=== PATIENT | male | born 1930 | race Caucasian/White ===

== ENCOUNTER 2017-02-11 04:29 | Inpatient (IN) | payer OTHER ==
[~2017-02-11] VITALS: Ht 170.2 cm; Wt 155.0 kg
[~2017-02-11 04:29] MED LIST: ALBU8.5H5 INH; ALPR0.25 PO; BUDE10.22 INH; CARV-39 PO; DOXY100C15 PO; DOXY100T PO; FAMO-79 PO; FURO-92 PO; HYDR-3240 PO; HYDR12.58 PO; LISI-167 PO; LOVA40TA2 PO; METF500T4 PO; POLY255P PO; PRED20TA PO; RIVA20TA PO
[2017-02-11] MEDS ORDERED: SODIUM CHLORIDE 0.9% 1,000 ML IV ONE (05:03)
[2017-02-11] MEDS ORDERED: HYDROmorphone 1 MG/ML, 1ML ONE (05:25)
[2017-02-11] MEDS ORDERED: HYDROmorphone 1 MG/ML, 1ML IVPush ONE (05:30)
[2017-02-11] MEDS ORDERED: SODIUM CHLORIDE FLUSH 10ML SYR IVF ONE (05:30)
[2017-02-11 05:44] LABS: HEMOGLOBIN 11.3 g/dL (13.7-18.0); WHITE BLOOD COUNT 9.3 x10^3/uL (3.4-10)
[2017-02-11 05:56] LABS: BLOOD UREA NITROGEN 94 mg/dL (7-18)
[2017-02-11 06:02] LABS: ASPARTATE AMINO TRANSFERASE 10 U/L (15-37)
[2017-02-11 06:51] LABS: IS PT STATUS REG ER OR PRE ER? YES
[2017-02-11] MEDS ORDERED: ONDANSETRON ODT 4 MG PO PRN (09:30)
[2017-02-11] MEDS ORDERED: LABETALOL 5MG/ML, 20ML IVPush PRN (09:30)
[2017-02-11] MEDS ORDERED: ONDANSETRON 2MG/ML, 2ML IVPush PRN (09:30)
[2017-02-11] MEDS ORDERED: POTA10TA31 PO (09:55)
[2017-02-11] MEDS ORDERED: HYDR12.58 PO (09:55)
[2017-02-11] MEDS ORDERED: BUDE10.2 INH (09:55)
[2017-02-11] MEDS ORDERED: GLIP5TAB10 PO (09:55)
[2017-02-11] MEDS ORDERED: OXYC-302 PO (09:55)
[2017-02-11] MEDS ORDERED: ALBUTEROL/IPRATROPIUM 2.5MG/0.5MG, 3 ML ONE (09:57)
[2017-02-11] MEDS ORDERED: ALBUTEROL/IPRATROPIUM 2.5MG/0.5MG, 3 ML NPPB PRN (10:00)
[2017-02-11 10:44] VITALS: BP 93/58
[2017-02-11] MEDS: SODIUM CHLORIDE 0.9% 1,000 ML IV SCH (12:18)
[2017-02-11 14:20] LABS: BLOOD UREA NITROGEN 85 mg/dL (7-18)
[2017-02-11 14:46] VITALS: BP 95/55
[2017-02-11] MEDS ORDERED: ALBUTEROL HFA 90 MCG/SPRAY HOMEINH PRN (17:00)
[2017-02-11] MEDS ORDERED: SODIUM POLYSTYRENE SULFONATE ORAL SUSP PO ONE (17:00)
[2017-02-11 18:06] LABS: DAU SCREEN DISCLAIMER
[2017-02-11 18:33] VITALS: BP 115/71
[2017-02-11] MEDS: INSULIN ASPART 100 UNITS/ML, PEN SQ-INSULIN SCH (21:00)
[2017-02-11] MEDS: LOVASTATIN 40 MG TABLET PO SCH (21:00)
[2017-02-11] MEDS: HEPARIN 5,000 UNITS/ML, 1ML SQ SCH (22:20)
[2017-02-11] MEDS: CARVEDILOL 25 MG TABLET PO SCH (22:20)
[2017-02-12 01:22] VITALS: BP 95/61
[2017-02-12 05:08] LABS: HEMATOCRIT 29.2 % (39.2-51.8); HEMOGLOBIN 9.6 g/dL (13.7-18.0); WHITE BLOOD COUNT 6.8 x10^3/uL (3.4-10)
[2017-02-12 05:24] LABS: ASPARTATE AMINO TRANSFERASE 10 U/L (15-37); BLOOD UREA NITROGEN 76 mg/dL (7-18)
[2017-02-12] MEDS: SODIUM CHLORIDE 0.9% 1,000 ML IV SCH ×4 (05:40→20:55)
[2017-02-12] MEDS: HEPARIN 5,000 UNITS/ML, 1ML SQ SCH ×3 (05:48→20:54)
[2017-02-12] MEDS: INSULIN ASPART 100 UNITS/ML, PEN SQ-INSULIN SCH ×4 (07:00→20:58)
[2017-02-12 07:25] VITALS: BP 104/61
[2017-02-12] MEDS: CARVEDILOL 25 MG TABLET PO SCH (09:00)
[2017-02-12 12:52] VITALS: BP 110/65
[2017-02-12 19:20] VITALS: BP 123/65
[2017-02-12] MEDS: CEFTRIAXONE PMX 2GM/50ML 50 ML IV SCH (20:54)
[2017-02-12 20:55] VITALS: BP 93/62
[2017-02-12] MEDS: LOVASTATIN 40 MG TABLET PO SCH (20:55)
[2017-02-12] MEDS: QUETIAPINE 25MG TABLET PO SCH (20:55)
[2017-02-12] MEDS: CARVEDILOL 3.125 MG TABLET PO SCH (21:00)
[2017-02-13 01:32] VITALS: BP 127/77
[2017-02-13] MEDS: SODIUM CHLORIDE 0.9% 1,000 ML IV SCH ×2 (05:23→14:30)
[2017-02-13] MEDS: HEPARIN 5,000 UNITS/ML, 1ML SQ SCH (05:23)
[2017-02-13 05:44] LABS: BLOOD UREA NITROGEN 61 mg/dL (7-18)
[2017-02-13 05:47] LABS: ASPARTATE AMINO TRANSFERASE 12 U/L (15-37)
[2017-02-13 06:13] LABS: HEMOGLOBIN 9.2 g/dL (13.7-18.0); WHITE BLOOD COUNT 5.1 x10^3/uL (3.4-10)
[2017-02-13 06:15] LABS: DIFF TOTAL CELLS COUNTED 100 CELL DIFF
[2017-02-13 06:18] LABS: VERIFY COUNTS? YES
[2017-02-13 06:19] LABS: ANISOCYTOSIS 1+; POLYCHROMASIA 1+
[2017-02-13 06:20] LABS: OVALOCYTES 1+
[2017-02-13] MEDS: INSULIN ASPART 100 UNITS/ML, PEN SQ-INSULIN SCH ×4 (07:00→21:18)
[2017-02-13 07:46] VITALS: BP 112/68
[2017-02-13] MEDS: HYDROCHLOROTHIAZIDE 12.5 MG CAPSULE PO SCH (09:45)
[2017-02-13] MEDS: QUETIAPINE 25MG TABLET PO SCH ×2 (09:45→21:00)
[2017-02-13] MEDS: CARVEDILOL 3.125 MG TABLET PO SCH ×2 (09:45→22:56)
[2017-02-13] MEDS ORDERED: APIXABAN 2.5 MG TABLET ONE (10:28)
[2017-02-13] MEDS: APIXABAN 2.5 MG TABLET PO SCH ×2 (10:30→22:56)
[2017-02-13 14:18] VITALS: BP 107/60
[2017-02-13] MEDS: CEFTRIAXONE PMX 2GM/50ML 50 ML IV SCH (21:12)
[2017-02-13 21:15] VITALS: BP 146/78
[2017-02-13] MEDS: LOVASTATIN 40 MG TABLET PO SCH (22:56)
[2017-02-13] MEDS: TAMSULOSIN 0.4 MG CAP.ER.24H PO SCH (22:56)
[2017-02-13] MEDS: FLUTICASONE/VILANTEROL 100-25MCG/INH INH SCH (23:01)
[2017-02-14] MEDS: SODIUM CHLORIDE 0.9% 1,000 ML IV SCH ×3 (00:14→16:08)
[2017-02-14 01:11] VITALS: BP 146/55
[2017-02-14 06:48] VITALS: BP 101/62
[2017-02-14] MEDS: TAMSULOSIN 0.4 MG CAP.ER.24H PO SCH (07:55)
[2017-02-14] MEDS: QUETIAPINE 25MG TABLET PO SCH ×2 (07:55→20:16)
[2017-02-14] MEDS: CARVEDILOL 3.125 MG TABLET PO SCH (07:55)
[2017-02-14] MEDS: APIXABAN 2.5 MG TABLET PO SCH ×2 (07:55→20:17)
[2017-02-14] MEDS: HYDROCHLOROTHIAZIDE 12.5 MG CAPSULE PO SCH (07:56)
[2017-02-14] MEDS: FLUTICASONE/VILANTEROL 100-25MCG/INH INH SCH (07:56)
[2017-02-14] MEDS: INSULIN ASPART 100 UNITS/ML, PEN SQ-INSULIN SCH ×4 (08:06→21:00)
[2017-02-14 09:06] LABS: HEMATOCRIT 26.5 % (39.2-51.8); HEMOGLOBIN 8.6 g/dL (13.7-18.0); WHITE BLOOD COUNT 5.1 x10^3/uL (3.4-10)
[2017-02-14 09:08] LABS: ASPARTATE AMINO TRANSFERASE 9 U/L (15-37); BLOOD UREA NITROGEN 48 mg/dL (7-18)
[2017-02-14] MEDS: GUAIFENESIN 200 MG TABLET PO SCH ×3 (12:17→20:17)
[2017-02-14 12:57] VITALS: BP 116/51
[2017-02-14] MEDS: METOPROLOL TARTRATE 25 MG TABLET PO SCH (17:10)
[2017-02-14 19:58] VITALS: BP 128/68
[2017-02-14] MEDS: CEFTRIAXONE PMX 2GM/50ML 50 ML IV SCH (20:16)
[2017-02-14] MEDS: LOVASTATIN 40 MG TABLET PO SCH (20:16)
[2017-02-15 00:38] VITALS: BP 134/74
[2017-02-15] MEDS: SODIUM CHLORIDE 0.9% 1,000 ML IV SCH (01:57)
[2017-02-15] MEDS ORDERED: HALOPERIDOL 5 MG/ML IV ONE (04:00)
[2017-02-15 05:19] LABS: BLOOD UREA NITROGEN 35 mg/dL (7-18)
[2017-02-15 05:22] LABS: ASPARTATE AMINO TRANSFERASE 11 U/L (15-37)
[2017-02-15 05:32] LABS: HEMATOCRIT 25.4 % (39.2-51.8); HEMOGLOBIN 8.2 g/dL (13.7-18.0); WHITE BLOOD COUNT 5.2 x10^3/uL (3.4-10)
[2017-02-15] MEDS: METOPROLOL TARTRATE 25 MG TABLET PO SCH ×2 (06:33→17:05)
[2017-02-15] MEDS: GUAIFENESIN 200 MG TABLET PO SCH ×4 (06:33→21:16)
[2017-02-15] MEDS: INSULIN ASPART 100 UNITS/ML, PEN SQ-INSULIN SCH ×4 (07:00→21:14)
[2017-02-15 07:18] VITALS: BP 98/57
[2017-02-15] MEDS: APIXABAN 2.5 MG TABLET PO SCH ×2 (11:15→21:15)
[2017-02-15] MEDS: FLUTICASONE/VILANTEROL 100-25MCG/INH INH SCH (11:15)
[2017-02-15] MEDS: QUETIAPINE 25MG TABLET PO SCH ×2 (11:16→21:15)
[2017-02-15] MEDS: TAMSULOSIN 0.4 MG CAP.ER.24H PO SCH (11:16)
[2017-02-15] MEDS: HYDROCHLOROTHIAZIDE 12.5 MG CAPSULE PO SCH (11:17)
[2017-02-15] MEDS: SODIUM CHLORIDE 0.45% 1,000 ML IV SCH (12:03)
[2017-02-15 15:15] VITALS: BP 145/72
[2017-02-15] MEDS ORDERED: PHARMACY MAY ADJ FOR RENAL FX MC PRN (16:30)
[2017-02-15 17:07] VITALS: BP 110/69
[2017-02-15] MEDS: CEFTAZIDIME IV SCH (17:12)
[2017-02-15] MEDS: DEXTROSE 5% IV SCH (17:12)
[2017-02-15] MEDS: LOVASTATIN 40 MG TABLET PO SCH (21:16)
[2017-02-15 21:20] VITALS: BP 126/70
[2017-02-16] MEDS: SODIUM CHLORIDE 0.45% 1,000 ML IV SCH ×2 (03:13→17:13)
[2017-02-16 03:19] VITALS: BP 117/65
[2017-02-16 05:00] LABS: HEMATOCRIT 25.9 % (39.2-51.8); HEMOGLOBIN 8.6 g/dL (13.7-18.0); WHITE BLOOD COUNT 5.9 x10^3/uL (3.4-10)
[2017-02-16 05:06] LABS: BLOOD UREA NITROGEN 27 mg/dL (7-18)
[2017-02-16 05:09] LABS: ASPARTATE AMINO TRANSFERASE 12 U/L (15-37)
[2017-02-16] MEDS: DEXTROSE 5% IV SCH (05:48)
[2017-02-16] MEDS: CEFTAZIDIME IV SCH (05:48)
[2017-02-16 06:57] VITALS: BP 121/67
[2017-02-16] MEDS: GUAIFENESIN 200 MG TABLET PO SCH ×4 (06:57→22:49)
[2017-02-16] MEDS: METOPROLOL TARTRATE 25 MG TABLET PO SCH ×2 (06:57→17:15)
[2017-02-16] MEDS: INSULIN ASPART 100 UNITS/ML, PEN SQ-INSULIN SCH ×4 (07:00→21:00)
[2017-02-16 08:28] VITALS: BP 113/73
[2017-02-16] MEDS: FLUTICASONE/VILANTEROL 100-25MCG/INH INH SCH (08:33)
[2017-02-16] MEDS: TAMSULOSIN 0.4 MG CAP.ER.24H PO SCH (08:34)
[2017-02-16] MEDS: HYDROCHLOROTHIAZIDE 12.5 MG CAPSULE PO SCH (08:34)
[2017-02-16] MEDS: QUETIAPINE 25MG TABLET PO SCH ×2 (08:34→22:49)
[2017-02-16] MEDS: APIXABAN 2.5 MG TABLET PO SCH ×2 (08:35→22:49)
[2017-02-16] MEDS ORDERED: MAGNESIUM HYDROXIDE 8%, 30ML UDC PO ONE (12:30)
[2017-02-16] MEDS ORDERED: POLYETHYLENE GLYCOL 17 GM PACKET PO ONE (12:30)
[2017-02-16 15:45] VITALS: BP 124/69
[2017-02-16 17:16] VITALS: BP 119/70
[2017-02-16 18:34] VITALS: BP 117/55
[2017-02-16] MEDS: LOVASTATIN 40 MG TABLET PO SCH (22:48)
[2017-02-17 03:40] VITALS: BP 127/73
[2017-02-17 05:36] LABS: HEMATOCRIT 25.5 % (39.2-51.8); HEMOGLOBIN 8.3 g/dL (13.7-18.0); WHITE BLOOD COUNT 5.7 x10^3/uL (3.4-10)
[2017-02-17 05:44] LABS: BLOOD UREA NITROGEN 21 mg/dL (7-18)
[2017-02-17] MEDS: GUAIFENESIN 200 MG TABLET PO SCH ×2 (06:40→13:44)
[2017-02-17] MEDS: METOPROLOL TARTRATE 25 MG TABLET PO SCH (06:40)
[2017-02-17] MEDS: INSULIN ASPART 100 UNITS/ML, PEN SQ-INSULIN SCH ×2 (07:00→12:14)
[2017-02-17 07:35] VITALS: BP 106/70
[2017-02-17] MEDS: TAMSULOSIN 0.4 MG CAP.ER.24H PO SCH (07:43)
[2017-02-17] MEDS: APIXABAN 2.5 MG TABLET PO SCH (07:43)
[2017-02-17] MEDS: HYDROCHLOROTHIAZIDE 12.5 MG CAPSULE PO SCH (07:43)
[2017-02-17] MEDS: FLUTICASONE/VILANTEROL 100-25MCG/INH INH SCH (07:43)
[2017-02-17] MEDS ORDERED: MAGNESIUM CITRATE 300ML ORAL SOL PO ONE (09:00)
[2017-02-17] MEDS ORDERED: LACTULOSE 20 GM/30 ML UDC PO SCH (09:00)
[2017-02-17] MEDS ORDERED: TAMS-11 PO (09:06)
[2017-02-17] MEDS ORDERED: FURO-93 PO (09:06)
[2017-02-17] MEDS ORDERED: FLUT1AER INH (09:06)
[2017-02-17] MEDS ORDERED: APIX2.5T PO ×2 (09:06→09:52)
[2017-02-17] MEDS ORDERED: QUET25TA PO (09:06)
[2017-02-17] MEDS: QUETIAPINE 25MG TABLET PO SCH (09:45)
[2017-02-17] MEDS ORDERED: CARV6.2512 PO (09:55)
[2017-02-17 13:50] VITALS: BP 133/75
== END 2017-02-17 16:15 | DRG 682 ==
LOC: ED 07:26 → EDIP 07:27 → ED 07:32 → 5SO 10:25
PROVIDERS: ADMIT Family Medicine; ATTEND Family Medicine
DX: N17.0 Acute kidney failure with tubular necrosis (principal); E43 Unspecified severe protein-calorie malnutrition; D68.69 Other thrombophilia; D69.6 Thrombocytopenia, unspecified; E66.01 Morbid (severe) obesity due to excess calories; E87.5 Hyperkalemia; F05 Delirium due to known physiological condition; E83.51 Hypocalcemia; I50.30 Unspecified diastolic (congestive) heart failure; Z68.43 Body mass index [BMI] 50.0-59.9, adult; I48.92 Unspecified atrial flutter; N39.0 Urinary tract infection, site not specified; I11.0 Hypertensive heart disease with heart failure; W18.30XA Fall on same level, unspecified, initial encounter; D64.9 Anemia, unspecified; E11.9 Type 2 diabetes mellitus without complications; Z88.5 Allergy status to narcotic agent; E78.5 Hyperlipidemia, unspecified; F03.90 Unspecified dementia, unspecified severity, without behavioral disturbance, psychotic disturbance, mood disturbance, and anxiety; G47.33 Obstructive sleep apnea (adult) (pediatric); I08.2 Rheumatic disorders of both aortic and tricuspid valves; Z96.641 Presence of right artificial hip joint; I27.20 Pulmonary hypertension, unspecified; I48.0 Paroxysmal atrial fibrillation; J44.9 Chronic obstructive pulmonary disease, unspecified; K59.00 Constipation, unspecified; S00.03XA Contusion of scalp, initial encounter; S70.01XA Contusion of right hip, initial encounter; Z79.01 Long term (current) use of anticoagulants; Z79.899 Other long term (current) drug therapy; Z85.038 Personal history of other malignant neoplasm of large intestine; Z87.891 Personal history of nicotine dependence; Z90.49 Acquired absence of other specified parts of digestive tract; Z99.81 Dependence on supplemental oxygen; Y93.89 Activity, other specified
CPT/HCPCS: 36415; 70450; 71010; 72131; 72192; 74000; 80048; 80053; 80061; 80307; 81001; 82040; 82962; 83690; 83735; 83880; 84100; 84439; 84484; 85025; 85610; 87040; 87077; 87086; 87186; 93005; 93306; 93970; 94640; 96361; 96374; J0696; J0713; J1170; J1644; G0479; J1630; J7030

== ENCOUNTER 2017-02-20 07:29 | Inpatient (IN) | payer OTHER ==
[~2017-02-20] VITALS: Ht 180.3 cm; Wt 134.1 kg
[~2017-02-20 07:29] MED LIST changes: +APIX2.5T PO; +BUDE10.2 INH; +CARV6.2512 PO; +FLUT1AER INH; +FURO-93 PO; +GLIP5TAB10 PO; +OXYC-302 PO; +POTA10TA31 PO; +QUET25TA PO; +TAMS-11 PO
[2017-02-20] MEDS ORDERED: SODIUM CHLORIDE FLUSH 10ML SYR IVF ONE (08:00)
[2017-02-20] MEDS ORDERED: PLEASE ENTER HEIGHT AND WEIGHT MC SCH (08:00)
[2017-02-20] MEDS ORDERED: FUROSEMIDE 40 MG/4 ML IV ONE (08:00)
[2017-02-20 08:01] LABS: INTERNATIONAL NORMALIZED RATIO 1.02 (0.93-1.1); PROTHROMBIN TIME 10.5 Seconds (9.6-11.5)
[2017-02-20 08:02] LABS: ALANINE AMINOTRANSFERASE 16 U/L (12-78); ALBUMIN 2.3 g/dL (3.4-5.0); CALCIUM 7.9 mg/dL (8.5-10.1); CHLORIDE 98 mmol/L (98-107); CREATININE 1.74 mg/dL (0.7-1.3)
[2017-02-20] MEDS ORDERED: PROPOFOL 100 ML IV PRN ×3 (08:03→15:00)
[2017-02-20 08:05] LABS: BASOPHILS # (AUTO) 0.01 x10^3/uL (0-0.1); BASOPHILS % (AUTO) 0 % (0-1); EOSINOPHILS # (AUTO) 0.05 x10^3/uL (0-0.4); EOSINOPHILS % (AUTO) 1 % (1-7); LYMPHOCYTES # (AUTO) 0.84 x10^3/uL (1-3.4); LYMPHOCYTES % (AUTO) 9 % (22-44); MD NO; MEAN CORPUSCULAR VOLUME 96.9 fL (81-97); MEAN PLATELET VOLUME 9.9 fL (7.4-10.4); MONOCYTES # (AUTO) 0.33 x10^3/uL (0.2-0.8); MONOCYTES % (AUTO) 4 % (2-9); NEUTROPHILS # (AUTO) 8.22 x10^3/uL (1.8-6.8); NEUTROPHILS % (AUTO) 87 % (42-75); PLATELET COUNT 173 x10^3/uL (130-400); RED BLOOD COUNT 3.14 x10^6/uL (4.38-5.82); RED CELL DISTRIBUTION WIDTH 15.2 % (9.4-14.8)
[2017-02-20 08:06] LABS: ANION GAP 1 mmol/L (5-15)
[2017-02-20 08:07] LABS: ALKALINE PHOSPHATASE 54 U/L (45-117); BILIRUBIN,TOTAL 0.6 mg/dL (0.2-1.0); TOTAL PROTEIN 6.1 g/dL (6.4-8.2); TROPONIN I 0.065 ng/mL (0.000-0.045)
[2017-02-20] MEDS ORDERED: DEXTROSE 50%, 50ML SYRINGE IVPush ONE (08:30)
[2017-02-20] MEDS ORDERED: INSULIN REGULAR 100 UNITS/ML, 3ML VIAL IVPush ONE (08:30)
[2017-02-20] MEDS ORDERED: CALCIUM CHLORIDE 10%, 10ML SYR IVPush ONE (08:30)
[2017-02-20] MEDS ORDERED: ETOMIDATE 20 MG/10 ML IV ONE (08:30)
[2017-02-20] MEDS ORDERED: SUCCINYLCHOLINE 20 MG/ML, 10ML IVPush ONE (08:30)
[2017-02-20] MEDS ORDERED: SODIUM BICARB 8.4%, 50ML SYRINGE IVPush ONE (08:30)
[2017-02-20] MEDS ORDERED: MIDAZOLAM 1 MG/ML, 5ML ONE (09:00)
[2017-02-20] MEDS ORDERED: SODIUM BICARB 8.4%, 50ML SYRINGE ONE (09:00)
[2017-02-20] MEDS ORDERED: PROPOFOL 10 MG/ML, 100ML IV ONE (09:00)
[2017-02-20] MEDS ORDERED: SUCCINYLCHOLINE 20 MG/ML, 10ML ONE (09:00)
[2017-02-20] MEDS ORDERED: EPINEPHRINE SYRINGE 0.1 MG/ML, 10ML ONE (09:00)
[2017-02-20] MEDS ORDERED: ETOMIDATE 40 MG/20 ML ONE (09:00)
[2017-02-20] MEDS ORDERED: DEXTROSE 50%, 50ML SYRINGE ONE (09:00)
[2017-02-20] MEDS ORDERED: CALCIUM CHLORIDE 10%, 10ML SYR ONE (09:00)
[2017-02-20] MEDS ORDERED: INSULIN REGULAR 100 UNITS/ML, 3ML VIAL ONE (09:13)
[2017-02-20] MEDS ORDERED: FUROSEMIDE 40 MG/4 ML ONE (09:28)
[2017-02-20] MEDS ORDERED: PHARMACOKINETIC CONSULTATION MC ONE (09:30)
[2017-02-20] MEDS ORDERED: VANCOMYCIN 2,000 MG in SODIUM CHLORIDE 0.9% 500 ML IV ONE (09:30)
[2017-02-20] MEDS ORDERED: VANCOMYCIN PER PHARMACY MC ONE (09:30)
[2017-02-20] MEDS ORDERED: PIPERACILLIN/TAZO/PMX 4.5GM 100 ML IVPB ONE (09:30)
[2017-02-20] MEDS ORDERED: PROPOFOL 100 ML IV ONE ×2 (10:50→18:58)
[2017-02-20] MEDS ORDERED: ACETAMINOPHEN 650 MG SUPP ONE (10:51)
[2017-02-20] MEDS ORDERED: ACETAMINOPHEN 650 MG SUPP PR PRN ×2 (11:00→15:00)
[2017-02-20] MEDS ORDERED: SODIUM CHLORIDE FLUSH 10ML SYR IVF PRN (11:00)
[2017-02-20 11:01] LABS: ANION GAP 4 mmol/L (5-15); CALCIUM 7.7 mg/dL (8.5-10.1); CHLORIDE 101 mmol/L (98-107); CREATININE 1.76 mg/dL (0.7-1.3)
[2017-02-20] MEDS ORDERED: SODIUM CHLORIDE 0.9% 1,000ML IVBOLUS ONE (11:30)
[2017-02-20] MEDS ORDERED: ENALAPRILAT 1.25 MG/ML, 2ML IVPush PRN (12:00)
[2017-02-20] MEDS ORDERED: ONDANSETRON 2MG/ML, 2ML IVPush PRN (12:00)
[2017-02-20] MEDS: FENTANYL PF 250 MCG in SODIUM CHLORIDE 0.9% 245 ML IV PRN ×2 (12:57→19:24)
[2017-02-20 13:13] LABS: TROPONIN I 0.118 ng/mL (0.000-0.045)
[2017-02-20] MEDS ORDERED: VECURONIUM 10 MG ONE (14:00)
[2017-02-20] MEDS ORDERED: ENOXAPARIN 40 MG/0.4 ML ONE (14:59)
[2017-02-20] MEDS: ENOXAPARIN 40 MG/0.4 ML SQ SCH (15:37)
[2017-02-20] MEDS: AMPICILLIN/SULBACTAM 3 GM in SODIUM CHLORIDE 0.9% 100 ML IV SCH ×2 (17:18→21:51)
[2017-02-20] MEDS ORDERED: PHARMACY MAY ADJ FOR RENAL FX MC SCH (19:00)
[2017-02-20] MEDS ORDERED: LACTULOSE 20 GM/30 ML UDC NG PRN (19:00)
[2017-02-20 19:36] LABS: TROPONIN I 0.225 ng/mL (0.000-0.045)
[2017-02-20] MEDS ORDERED: VECURONIUM 20 MG VIAL ONE (19:40)
[2017-02-20] MEDS ORDERED: SODIUM PHOSPHATE 20 MMOL in SODIUM CHLORIDE 0.9% 250 ML IVPB PRN (19:50)
[2017-02-20] MEDS: OCULAR LUBRICANT OPHTH OINT 3.5 GM EACHEYE SCH (19:56)
[2017-02-20] MEDS ORDERED: KSCALE TO 4.0 IV SCH (20:00)
[2017-02-20] MEDS ORDERED: VECURONIUM 10 MG IVPush ONE (20:00)
[2017-02-20] MEDS ORDERED: MAGNESIUM SULFATE 1 GM in SODIUM CHLORIDE 0.9% 50 ML IVPB PRN (20:00)
[2017-02-20 21:19] LABS: CULTURE INDICATED? YES; MICROSCOPIC INDICATED
[2017-02-20] MEDS ORDERED: DOPAMINE/D5W PMX 250 ML ONE (21:41)
[2017-02-20 21:58] LABS: CALCIUM 7.3 mg/dL (8.5-10.1); CHLORIDE 103 mmol/L (98-107); CREATININE 1.34 mg/dL (0.7-1.3)
[2017-02-20] MEDS: DOPAMINE/D5W PMX 250 ML IV PRN (21:58)
[2017-02-20 21:59] LABS: ANION GAP 9 mmol/L (5-15)
[2017-02-20] MEDS ORDERED: POTASSIUM CHLORIDE PMX 100 ML IV ONE (23:00)
[2017-02-20] MEDS: KSCALE TO 4.0 IV SCH (23:05)
[2017-02-20] MEDS ORDERED: POTASSIUM CHLORIDE 20 MEQ in SODIUM CHLORIDE 0.9% 100 ML IV ONE (23:30)
[2017-02-21] MEDS ORDERED: AMIODARONE 150 MG in DEXTROSE 5% 100 ML IV ONE
[2017-02-21] MEDS ORDERED: FILTER 0.22 MICRON IV PRN (00:30)
[2017-02-21] MEDS: AMIODARONE 900 MG in DEXTROSE 5% 482 ML IV PRN (00:33)
[2017-02-21] MEDS: KSCALE TO 4.0 IV SCH ×6 (01:30→22:51)
[2017-02-21] MEDS: PROPOFOL 100 ML IV PRN ×11 (02:02→23:42)
[2017-02-21 04:00] VITALS: BP 134/70
[2017-02-21 04:23] LABS: BASOPHILS % (AUTO) 0 % (0-1); EOSINOPHILS # (AUTO) 0.01 x10^3/uL (0-0.4); EOSINOPHILS % (AUTO) 0 % (1-7); LYMPHOCYTES # (AUTO) 0.25 x10^3/uL (1-3.4); LYMPHOCYTES % (AUTO) 3 % (22-44); MD NO; MEAN CORPUSCULAR HEMOGLOBIN 31.2 pg (27.5-34.5); MEAN CORPUSCULAR HGB CONC 32.6 g/dL (33.2-36.2); MEAN CORPUSCULAR VOLUME 95.8 fL (81-97); MEAN PLATELET VOLUME 9.7 fL (7.4-10.4); MONOCYTES # (AUTO) 0.33 x10^3/uL (0.2-0.8); MONOCYTES % (AUTO) 4 % (2-9); NEUTROPHILS # (AUTO) 7.98 x10^3/uL (1.8-6.8); NEUTROPHILS % (AUTO) 93 % (42-75); PLATELET COUNT 171 x10^3/uL (130-400); RED BLOOD COUNT 3.25 x10^6/uL (4.38-5.82); RED CELL DISTRIBUTION WIDTH 14.7 % (9.4-14.8)
[2017-02-21 04:33] LABS: ALBUMIN 2.2 g/dL (3.4-5.0); ANION GAP 15 mmol/L (5-15); CALCIUM 7.3 mg/dL (8.5-10.1); CHLORIDE 102 mmol/L (98-107)
[2017-02-21 04:42] LABS: ALANINE AMINOTRANSFERASE 13 U/L (12-78); ALKALINE PHOSPHATASE 56 U/L (45-117); BILIRUBIN,TOTAL 0.7 mg/dL (0.2-1.0); CHOL/HDL RATIO 2.5; CHOLESTEROL, TOTAL 135 mg/dL (140-239); CREATININE 1.39 mg/dL (0.7-1.3); HDL CHOL % 40 % (26-37); HDL CHOLESTEROL (DIRECT) 54 mg/dL (40-60); LDL CHOLESTEROL,CALCULATED 41 mg/dL (54-169); LDL/HDL RATIO 0.8 (0.5-3.0); THYROID STIMULATING HORMONE 0.458 mIU/L (0.358-3.740); TRIGLYCERIDES 199 mg/dL (50-200); VLDL CHOLESTEROL 40 mg/dL (0-25)
[2017-02-21] MEDS: FENTANYL PF 250 MCG in SODIUM CHLORIDE 0.9% 245 ML IV PRN ×2 (04:53→11:06)
[2017-02-21] MEDS: OCULAR LUBRICANT OPHTH OINT 3.5 GM EACHEYE SCH ×3 (04:53→20:12)
[2017-02-21] MEDS: AMPICILLIN/SULBACTAM 3 GM in SODIUM CHLORIDE 0.9% 100 ML IV SCH ×4 (04:55→21:26)
[2017-02-21] MEDS: NOREPINEPHRINE 4 MG in SODIUM CHLORIDE 0.9% 246 ML IV PRN ×2 (05:29→13:43)
[2017-02-21] MEDS ORDERED: ASPIRIN 325 MG TABLET EC PO SCH (06:00)
[2017-02-21] MEDS: REGULAR INSULIN 62.5 UNITS in SODIUM CHLORIDE 0.9% 249.375 ML IV PRN ×2 (06:04→17:33)
[2017-02-21] MEDS ORDERED: SENNA/DOCUSATE TABLET PO SCH (09:00)
[2017-02-21] MEDS ORDERED: POTASSIUM CHLORIDE PMX 100 ML IV ONE ×4 (09:30→23:00)
[2017-02-21] MEDS: ASPIRIN 325 MG TABLET PO SCH (09:43)
[2017-02-21] MEDS ORDERED: SODIUM CHLORIDE 0.9% 1,000ML IVBOLUS ONE (10:00)
[2017-02-21] MEDS: ENOXAPARIN 40 MG/0.4 ML SQ SCH (12:25)
[2017-02-21] MEDS: DOPAMINE/D5W PMX 250 ML IV PRN (13:44)
[2017-02-21] MEDS: FENTANYL IV PRN (21:59)
[2017-02-21] MEDS: SODIUM CHLORIDE 0.9% IV PRN (21:59)
[2017-02-22] MEDS: NOREPINEPHRINE 4 MG in SODIUM CHLORIDE 0.9% 246 ML IV PRN ×4 (01:21→15:26)
[2017-02-22] MEDS: AMIODARONE 900 MG in DEXTROSE 5% 482 ML IV PRN (01:52)
[2017-02-22] MEDS: PROPOFOL 100 ML IV PRN ×13 (01:52→22:03)
[2017-02-22] MEDS: KSCALE TO 4.0 IV SCH ×6 (03:17→21:00)
[2017-02-22] MEDS ORDERED: POTASSIUM CHLORIDE PMX 100 ML IV ONE ×3 (03:30→13:30)
[2017-02-22] MEDS: AMPICILLIN/SULBACTAM 3 GM in SODIUM CHLORIDE 0.9% 100 ML IV SCH ×4 (04:51→21:26)
[2017-02-22] MEDS: OCULAR LUBRICANT OPHTH OINT 3.5 GM EACHEYE SCH ×3 (04:52→20:19)
[2017-02-22 05:19] VITALS: BP 127/65
[2017-02-22 05:37] LABS: MEAN CORPUSCULAR HEMOGLOBIN 31.9 pg (27.5-34.5); MEAN CORPUSCULAR HGB CONC 33.6 g/dL (33.2-36.2); MEAN CORPUSCULAR VOLUME 94.9 fL (81-97); MEAN PLATELET VOLUME 9.8 fL (7.4-10.4); PLATELET COUNT 162 x10^3/uL (130-400); RED CELL DISTRIBUTION WIDTH 15.1 % (9.4-14.8)
[2017-02-22 05:57] LABS: MD YES
[2017-02-22 06:03] LABS: BAND#(MANUAL) 1.46 x10^3/uL; BANDS%(MANUAL) 27 % (0-7); EOS#(MANUAL) 0.05 x10^3/uL (0.0-0.4); EOS% (MANUAL) 1 % (1-7); LYMPH#(MANUAL) 0.27 x10^3/uL (1-3.4); LYMPHS% (MANUAL) 5 % (22-44); METAMYELOCYTES# (MANUAL) 0.11 x10^3/uL (0-0); METAMYELOCYTES% (MANUAL) 2 % (0-1); MONOS#(MANUAL) 0.05 x10^3/uL (0.3-2.7); MONOS% (MANUAL) 1 % (2-9); SEG#(MANUAL) 3.46 x10^3/uL (1.8-6.8); SEGS% (MANUAL) 64 % (42-75)
[2017-02-22 06:04] LABS: <PLATELET ESTIMATE> ADEQUATE; <PLT MORPHOLOGY> NORMAL PLT MORPH; ANISOCYTOSIS 1+; OVALOCYTES 1+; POLYCHROMASIA 1+
[2017-02-22] MEDS: ASPIRIN 325 MG TABLET PO SCH (06:04)
[2017-02-22] MEDS: DOPAMINE/D5W PMX 250 ML IV PRN ×2 (06:06→20:24)
[2017-02-22] MEDS: SODIUM CHLORIDE 0.9% IV PRN (06:47)
[2017-02-22] MEDS: FENTANYL IV PRN (06:47)
[2017-02-22 08:29] LABS: ALBUMIN 1.8 g/dL (3.4-5.0); ANION GAP 9 mmol/L (5-15); CALCIUM 7.1 mg/dL (8.5-10.1); CHLORIDE 104 mmol/L (98-107); CREATININE 1.33 mg/dL (0.7-1.3)
[2017-02-22 08:35] LABS: ALANINE AMINOTRANSFERASE 18 U/L (12-78); ALKALINE PHOSPHATASE 60 U/L (45-117); TOTAL PROTEIN 5.4 g/dL (6.4-8.2)
[2017-02-22] MEDS: DOCUSATE 50 MG/5 ML, 10ML UDC PO SCH (10:35)
[2017-02-22] MEDS: SENNOSIDES 8.8 MG/5 ML ORAL SOL PO SCH (10:36)
[2017-02-22] MEDS: ENOXAPARIN 40 MG/0.4 ML SQ SCH (11:35)
[2017-02-22] MEDS ORDERED: ALBUTEROL/IPRATROPIUM 2.5MG/0.5MG, 3 ML ONE (14:21)
[2017-02-22] MEDS: ALBUTEROL/IPRATROPIUM 2.5MG/0.5MG, 3 ML NPPB SCH ×3 (14:31→23:00)
[2017-02-22] MEDS: REGULAR INSULIN 62.5 UNITS in SODIUM CHLORIDE 0.9% 249.375 ML IV PRN (15:03)
[2017-02-22] MEDS ORDERED: VASOPRESSIN 100 UNIT in SODIUM CHLORIDE 0.9% 495 ML IV PRN (17:00)
[2017-02-22] MEDS ORDERED: NOREPINEPHRINE 8 MG in SODIUM CHLORIDE 0.9% 242 ML IV PRN (18:00)
[2017-02-22] MEDS ORDERED: AMIODARONE 150 MG in DEXTROSE 5% 100 ML IV ONE (18:30)
[2017-02-22] MEDS: NOREPINEPHRINE 16 MG in SODIUM CHLORIDE 0.9% 234 ML IV PRN (22:16)
[2017-02-23] MEDS: PROPOFOL 100 ML IV PRN ×6 (00:09→12:31)
[2017-02-23] MEDS: KSCALE TO 4.0 IV SCH ×2 (00:53→04:16)
[2017-02-23] MEDS: REGULAR INSULIN 62.5 UNITS in SODIUM CHLORIDE 0.9% 249.375 ML IV PRN (01:36)
[2017-02-23] MEDS: ALBUTEROL/IPRATROPIUM 2.5MG/0.5MG, 3 ML NPPB SCH ×6 (02:13→21:43)
[2017-02-23] MEDS: OCULAR LUBRICANT OPHTH OINT 3.5 GM EACHEYE SCH ×3 (03:23→20:56)
[2017-02-23] MEDS: AMPICILLIN/SULBACTAM 3 GM in SODIUM CHLORIDE 0.9% 100 ML IV SCH ×4 (03:33→21:28)
[2017-02-23 04:00] VITALS: BP 115/53
[2017-02-23 04:59] LABS: TRIGLYCERIDES 677 mg/dL (50-200)
[2017-02-23] MEDS: ASPIRIN 325 MG TABLET PO SCH (05:49)
[2017-02-23] MEDS: NOREPINEPHRINE 16 MG in SODIUM CHLORIDE 0.9% 234 ML IV PRN ×2 (06:22→16:57)
[2017-02-23] MEDS: AMIODARONE 900 MG in DEXTROSE 5% 482 ML IV PRN (06:22)
[2017-02-23 07:46] LABS: ALBUMIN 1.6 g/dL (3.4-5.0); ANION GAP 10 mmol/L (5-15); CHLORIDE 109 mmol/L (98-107); CREATININE 1.43 mg/dL (0.7-1.3)
[2017-02-23 08:06] LABS: BASOPHILS # (AUTO) 0.01 x10^3/uL (0-0.1); BASOPHILS % (AUTO) 0 % (0-1); EOSINOPHILS # (AUTO) 0.08 x10^3/uL (0-0.4); EOSINOPHILS % (AUTO) 2 % (1-7); LYMPHOCYTES % (AUTO) 8 % (22-44); MD NO; MEAN CORPUSCULAR HEMOGLOBIN 31.3 pg (27.5-34.5); MEAN CORPUSCULAR HGB CONC 33.2 g/dL (33.2-36.2); MEAN CORPUSCULAR VOLUME 94.2 fL (81-97); MEAN PLATELET VOLUME 9.8 fL (7.4-10.4); MONOCYTES # (AUTO) 0.26 x10^3/uL (0.2-0.8); MONOCYTES % (AUTO) 5 % (2-9); NEUTROPHILS # (AUTO) 4.26 x10^3/uL (1.8-6.8); NEUTROPHILS % (AUTO) 85 % (42-75); PLATELET COUNT 145 x10^3/uL (130-400); RED BLOOD COUNT 2.83 x10^6/uL (4.38-5.82)
[2017-02-23] MEDS: DOCUSATE 50 MG/5 ML, 10ML UDC PO SCH (08:46)
[2017-02-23] MEDS: SENNOSIDES 8.8 MG/5 ML ORAL SOL PO SCH (08:47)
[2017-02-23] MEDS: ENOXAPARIN 40 MG/0.4 ML SQ SCH (11:32)
[2017-02-23] MEDS: ALBUMIN HUMAN 25% 100 ML IV SCH ×2 (11:32→17:53)
[2017-02-23] MEDS: INSULIN ASPART 100 UNITS/ML, PEN SQ-INSULIN SCH ×3 (11:36→23:04)
[2017-02-24] VITALS (17 sets, daily range): BP systolic 102–140; BP diastolic 52–78
[2017-02-24] MEDS: ALBUMIN HUMAN 25% 100 ML IV SCH ×3 (02:03→17:55)
[2017-02-24] MEDS: ALBUTEROL/IPRATROPIUM 2.5MG/0.5MG, 3 ML NPPB SCH ×6 (02:16→21:46)
[2017-02-24] MEDS: OCULAR LUBRICANT OPHTH OINT 3.5 GM EACHEYE SCH ×3 (03:44→20:00)
[2017-02-24] MEDS: AMPICILLIN/SULBACTAM 3 GM in SODIUM CHLORIDE 0.9% 100 ML IV SCH ×4 (03:44→22:16)
[2017-02-24] MEDS: INSULIN ASPART 100 UNITS/ML, PEN SQ-INSULIN SCH ×4 (05:05→23:00)
[2017-02-24] MEDS: ASPIRIN 325 MG TABLET PO SCH (05:09)
[2017-02-24 05:38] LABS: MEAN CORPUSCULAR HEMOGLOBIN 32.2 pg (27.5-34.5); MEAN CORPUSCULAR HGB CONC 34.2 g/dL (33.2-36.2); MEAN CORPUSCULAR VOLUME 94.1 fL (81-97); MEAN PLATELET VOLUME 9.2 fL (7.4-10.4); PLATELET COUNT 115 x10^3/uL (130-400); RED BLOOD COUNT 2.08 x10^6/uL (4.38-5.82)
[2017-02-24 05:56] LABS: MD YES
[2017-02-24 05:58] LABS: BAND#(MANUAL) 0.36 x10^3/uL; BANDS%(MANUAL) 11 % (0-7); EOS#(MANUAL) 0.03 x10^3/uL (0.0-0.4); EOS% (MANUAL) 1 % (1-7); LYMPH#(MANUAL) 0.43 x10^3/uL (1-3.4); LYMPHS% (MANUAL) 13 % (22-44); MONOS#(MANUAL) 0.07 x10^3/uL (0.3-2.7); MONOS% (MANUAL) 2 % (2-9); SEG#(MANUAL) 2.41 x10^3/uL (1.8-6.8); SEGS% (MANUAL) 73 % (42-75)
[2017-02-24 05:59] LABS: ANISOCYTOSIS 1+; OVALOCYTES 1+
[2017-02-24 06:00] LABS: <PLATELET ESTIMATE> ADEQUATE; <PLT MORPHOLOGY> NORMAL PLT MORPH; TEAR DROPS 1+
[2017-02-24 06:46] LABS: INTERNATIONAL NORMALIZED RATIO 0.97 (0.93-1.1)
[2017-02-24 06:59] LABS: CHLORIDE 111 mmol/L (98-107)
[2017-02-24 07:04] LABS: ALBUMIN 2.3 g/dL (3.4-5.0); CALCIUM 7.2 mg/dL (8.5-10.1); CREATININE 1.48 mg/dL (0.7-1.3)
[2017-02-24 07:06] LABS: ANION GAP 7 mmol/L (5-15)
[2017-02-24] MEDS: SENNOSIDES 8.8 MG/5 ML ORAL SOL PO SCH (10:46)
[2017-02-24] MEDS: DOCUSATE 50 MG/5 ML, 10ML UDC PO SCH (10:47)
[2017-02-24] MEDS: LACTULOSE 20 GM/30 ML UDC NG SCH (10:49)
[2017-02-24] MEDS: ENOXAPARIN 40 MG/0.4 ML SQ SCH (11:26)
[2017-02-24] MEDS: AMIODARONE 900 MG in DEXTROSE 5% 482 ML IV PRN (14:39)
[2017-02-25] MEDS: ALBUTEROL/IPRATROPIUM 2.5MG/0.5MG, 3 ML NPPB SCH ×6 (02:42→22:45)
[2017-02-25] MEDS: ALBUMIN HUMAN 25% 100 ML IV SCH ×3 (02:45→17:33)
[2017-02-25] MEDS: POLYETHYLENE GLYCOL 17 GM PACKET PO PRN (03:46)
[2017-02-25 04:00] VITALS: BP 136/67
[2017-02-25] MEDS: OCULAR LUBRICANT OPHTH OINT 3.5 GM EACHEYE SCH ×3 (04:00→23:04)
[2017-02-25] MEDS: AMPICILLIN/SULBACTAM 3 GM in SODIUM CHLORIDE 0.9% 100 ML IV SCH ×4 (04:13→23:04)
[2017-02-25] MEDS: INSULIN ASPART 100 UNITS/ML, PEN SQ-INSULIN SCH ×4 (05:00→23:06)
[2017-02-25] MEDS: ASPIRIN 325 MG TABLET PO SCH (06:00)
[2017-02-25 06:15] LABS: BASOPHILS % (AUTO) 0 % (0-1); EOSINOPHILS # (AUTO) 0.02 x10^3/uL (0-0.4); EOSINOPHILS % (AUTO) 1 % (1-7); LYMPHOCYTES # (AUTO) 0.39 x10^3/uL (1-3.4); LYMPHOCYTES % (AUTO) 11 % (22-44); MD NO; MEAN CORPUSCULAR HEMOGLOBIN 30.7 pg (27.5-34.5); MEAN CORPUSCULAR HGB CONC 33.2 g/dL (33.2-36.2); MEAN CORPUSCULAR VOLUME 92.6 fL (81-97); MEAN PLATELET VOLUME 8.3 fL (7.4-10.4); MONOCYTES # (AUTO) 0.26 x10^3/uL (0.2-0.8); MONOCYTES % (AUTO) 7 % (2-9); NEUTROPHILS # (AUTO) 2.83 x10^3/uL (1.8-6.8); NEUTROPHILS % (AUTO) 81 % (42-75); PLATELET COUNT 108 x10^3/uL (130-400); RED BLOOD COUNT 2.64 x10^6/uL (4.38-5.82); RED CELL DISTRIBUTION WIDTH 16.8 % (9.4-14.8)
[2017-02-25 08:04] LABS: ANION GAP 8 mmol/L (5-15); CALCIUM 7.6 mg/dL (8.5-10.1); CHLORIDE 111 mmol/L (98-107)
[2017-02-25] MEDS ORDERED: SODIUM CHLORIDE 0.45%, 1,000ML IV ONE (08:30)
[2017-02-25] MEDS ORDERED: MAGNESIUM CITRATE 300ML ORAL SOL PO ONE (08:30)
[2017-02-25] MEDS: LACTULOSE 20 GM/30 ML UDC NG SCH (09:00)
[2017-02-25] MEDS: DOCUSATE 50 MG/5 ML, 10ML UDC PO SCH (09:00)
[2017-02-25] MEDS: SENNOSIDES 8.8 MG/5 ML ORAL SOL PO SCH (09:00)
[2017-02-25] MEDS: ENOXAPARIN 40 MG/0.4 ML SQ SCH (12:00)
[2017-02-25] MEDS: AMIODARONE 900 MG in DEXTROSE 5% 482 ML IV PRN (21:16)
[2017-02-26] MEDS ORDERED: SODIUM CHLORIDE 0.9%, 500ML IVBOLUS ONE
[2017-02-26] MEDS: ALBUMIN HUMAN 25% 100 ML IV SCH ×3 (02:02→17:56)
[2017-02-26] MEDS: ALBUTEROL/IPRATROPIUM 2.5MG/0.5MG, 3 ML NPPB SCH ×6 (02:20→22:34)
[2017-02-26 03:04] LABS: MEAN CORPUSCULAR HEMOGLOBIN 30.9 pg (27.5-34.5); MEAN CORPUSCULAR HGB CONC 33.3 g/dL (33.2-36.2); MEAN CORPUSCULAR VOLUME 92.9 fL (81-97); RED BLOOD COUNT 2.64 x10^6/uL (4.38-5.82); RED CELL DISTRIBUTION WIDTH 16.4 % (9.4-14.8)
[2017-02-26 03:25] LABS: BASOPHILS % (AUTO) 0 % (0-1); EOSINOPHILS # (AUTO) 0.03 x10^3/uL (0-0.4); EOSINOPHILS % (AUTO) 1 % (1-7); LYMPHOCYTES # (AUTO) 0.38 x10^3/uL (1-3.4); LYMPHOCYTES % (AUTO) 11 % (22-44); MD SCAN; MEAN PLATELET VOLUME 8.4 fL (7.4-10.4); MONOCYTES # (AUTO) 0.34 x10^3/uL (0.2-0.8); MONOCYTES % (AUTO) 10 % (2-9); NEUTROPHILS # (AUTO) 2.69 x10^3/uL (1.8-6.8); NEUTROPHILS % (AUTO) 78 % (42-75); PLATELET COUNT 95 x10^3/uL (130-400)
[2017-02-26 04:12] VITALS: BP 123/56
[2017-02-26] MEDS: AMPICILLIN/SULBACTAM 3 GM in SODIUM CHLORIDE 0.9% 100 ML IV SCH ×4 (04:28→21:44)
[2017-02-26] MEDS: OCULAR LUBRICANT OPHTH OINT 3.5 GM EACHEYE SCH (04:28)
[2017-02-26] MEDS: INSULIN ASPART 100 UNITS/ML, PEN SQ-INSULIN SCH ×4 (05:18→23:34)
[2017-02-26] MEDS: ASPIRIN 325 MG TABLET PO SCH ×2 (06:00→06:38)
[2017-02-26 06:08] LABS: ANION GAP 7 mmol/L (5-15); CALCIUM 7.5 mg/dL (8.5-10.1); CHLORIDE 109 mmol/L (98-107); CREATININE 1.39 mg/dL (0.7-1.3)
[2017-02-26] MEDS: DOCUSATE 50 MG/5 ML, 10ML UDC PO SCH (08:28)
[2017-02-26] MEDS: SENNOSIDES 8.8 MG/5 ML ORAL SOL PO SCH (08:28)
[2017-02-26] MEDS: LACTULOSE 20 GM/30 ML UDC NG SCH (08:29)
[2017-02-26] MEDS ORDERED: BISACODYL 10 MG SUPP PR PRN (08:30)
[2017-02-26] MEDS ORDERED: ARTIFICIAL TEARS OPHTH SOLN 15ML EACHEYE PRN (12:00)
[2017-02-26 15:29] LABS: HIT RESULT NEGATIVE (NEGATIVE)
[2017-02-26] MEDS: FUROSEMIDE 40 MG/4 ML IV SCH ×2 (15:30→21:44)
[2017-02-26] MEDS: POTASSIUM CHLORIDE 20 MEQ TAB.ER.PRT PO SCH (16:48)
[2017-02-27] MEDS: ALBUMIN HUMAN 25% 100 ML IV SCH ×4 (02:04→21:44)
[2017-02-27] MEDS: ALBUTEROL/IPRATROPIUM 2.5MG/0.5MG, 3 ML NPPB SCH ×6 (02:09→22:45)
[2017-02-27] MEDS: AMPICILLIN/SULBACTAM 3 GM in SODIUM CHLORIDE 0.9% 100 ML IV SCH ×4 (03:46→21:43)
[2017-02-27 04:01] VITALS: BP 128/62
[2017-02-27 04:55] LABS: BASOPHILS # (AUTO) 0.01 x10^3/uL (0-0.1); BASOPHILS % (AUTO) 0 % (0-1); EOSINOPHILS # (AUTO) 0.04 x10^3/uL (0-0.4); EOSINOPHILS % (AUTO) 1 % (1-7); LYMPHOCYTES # (AUTO) 0.54 x10^3/uL (1-3.4); LYMPHOCYTES % (AUTO) 13 % (22-44); MD NO; MEAN CORPUSCULAR HEMOGLOBIN 30.7 pg (27.5-34.5); MEAN CORPUSCULAR HGB CONC 32.3 g/dL (33.2-36.2); MEAN PLATELET VOLUME 9.3 fL (7.4-10.4); MONOCYTES # (AUTO) 0.41 x10^3/uL (0.2-0.8); MONOCYTES % (AUTO) 10 % (2-9); NEUTROPHILS # (AUTO) 3.06 x10^3/uL (1.8-6.8); NEUTROPHILS % (AUTO) 75 % (42-75); PLATELET COUNT 108 x10^3/uL (130-400); RED BLOOD COUNT 2.64 x10^6/uL (4.38-5.82); RED CELL DISTRIBUTION WIDTH 16.3 % (9.4-14.8)
[2017-02-27 04:56] LABS: ANION GAP 6 mmol/L (5-15); CALCIUM 7.7 mg/dL (8.5-10.1); CHLORIDE 106 mmol/L (98-107); CREATININE 1.56 mg/dL (0.7-1.3)
[2017-02-27] MEDS: INSULIN ASPART 100 UNITS/ML, PEN SQ-INSULIN SCH ×4 (05:08→22:54)
[2017-02-27] MEDS: ASPIRIN 81 MG TABLET EC PO SCH (06:00)
[2017-02-27] MEDS: FUROSEMIDE 40 MG/4 ML IV SCH ×3 (06:02→22:53)
[2017-02-27] MEDS: LACTULOSE 20 GM/30 ML UDC NG SCH (08:30)
[2017-02-27] MEDS: DOCUSATE 50 MG/5 ML, 10ML UDC PO SCH (08:30)
[2017-02-27] MEDS: SENNOSIDES 8.8 MG/5 ML ORAL SOL PO SCH (08:30)
[2017-02-27] MEDS: POTASSIUM CHLORIDE 20 MEQ TAB.ER.PRT PO SCH ×2 (09:12→17:26)
[2017-02-28] MEDS: ALBUTEROL/IPRATROPIUM 2.5MG/0.5MG, 3 ML NPPB SCH ×6 (03:00→23:00)
[2017-02-28 04:00] VITALS: BP 128/69
[2017-02-28] MEDS: AMPICILLIN/SULBACTAM 3 GM in SODIUM CHLORIDE 0.9% 100 ML IV SCH ×4 (04:15→21:31)
[2017-02-28 04:55] LABS: BASOPHILS # (AUTO) 0.01 x10^3/uL (0-0.1); BASOPHILS % (AUTO) 0 % (0-1); CHLORIDE 105 mmol/L (98-107); EOSINOPHILS # (AUTO) 0.05 x10^3/uL (0-0.4); EOSINOPHILS % (AUTO) 1 % (1-7); LYMPHOCYTES # (AUTO) 0.58 x10^3/uL (1-3.4); LYMPHOCYTES % (AUTO) 13 % (22-44); MD NO; MEAN CORPUSCULAR HGB CONC 32.9 g/dL (33.2-36.2); MEAN CORPUSCULAR VOLUME 94.3 fL (81-97); MEAN PLATELET VOLUME 9.9 fL (7.4-10.4); MONOCYTES # (AUTO) 0.39 x10^3/uL (0.2-0.8); MONOCYTES % (AUTO) 9 % (2-9); NEUTROPHILS # (AUTO) 3.41 x10^3/uL (1.8-6.8); NEUTROPHILS % (AUTO) 77 % (42-75); PLATELET COUNT 120 x10^3/uL (130-400); RED BLOOD COUNT 2.56 x10^6/uL (4.38-5.82); RED CELL DISTRIBUTION WIDTH 15.5 % (9.4-14.8)
[2017-02-28 05:00] LABS: ANION GAP 7 mmol/L (5-15); CALCIUM 8.1 mg/dL (8.5-10.1); CREATININE 1.69 mg/dL (0.7-1.3)
[2017-02-28] MEDS: INSULIN ASPART 100 UNITS/ML, PEN SQ-INSULIN SCH ×4 (05:06→23:55)
[2017-02-28] MEDS: ALBUMIN HUMAN 25% 100 ML IV SCH ×3 (05:39→21:31)
[2017-02-28] MEDS: FUROSEMIDE 40 MG/4 ML IV SCH ×3 (07:09→21:32)
[2017-02-28] MEDS: SENNOSIDES 8.8 MG/5 ML ORAL SOL PO SCH (07:24)
[2017-02-28] MEDS: LACTULOSE 20 GM/30 ML UDC NG SCH (07:24)
[2017-02-28] MEDS: DOCUSATE 50 MG/5 ML, 10ML UDC PO SCH (07:24)
[2017-02-28] MEDS: POTASSIUM CHLORIDE 20 MEQ TAB.ER.PRT PO SCH ×2 (09:30→16:37)
[2017-02-28] MEDS: ASPIRIN 81 MG TABLET EC PO SCH (09:30)
[2017-02-28] MEDS: AMIODARONE 200 MG TABLET PO SCH (20:32)
[2017-03-01] MEDS: ALBUTEROL/IPRATROPIUM 2.5MG/0.5MG, 3 ML NPPB SCH ×6 (03:00→22:51)
[2017-03-01] MEDS: AMPICILLIN/SULBACTAM 3 GM in SODIUM CHLORIDE 0.9% 100 ML IV SCH ×4 (03:35→22:14)
[2017-03-01 04:00] VITALS: BP 121/60
[2017-03-01 04:39] LABS: ANION GAP 7 mmol/L (5-15); CHLORIDE 103 mmol/L (98-107)
[2017-03-01 04:40] LABS: CREATININE 1.69 mg/dL (0.7-1.3); TRIGLYCERIDES 114 mg/dL (50-200)
[2017-03-01 04:42] LABS: BASOPHILS # (AUTO) 0.01 x10^3/uL (0-0.1); BASOPHILS % (AUTO) 0 % (0-1); EOSINOPHILS # (AUTO) 0.14 x10^3/uL (0-0.4); EOSINOPHILS % (AUTO) 3 % (1-7); LYMPHOCYTES # (AUTO) 0.72 x10^3/uL (1-3.4); LYMPHOCYTES % (AUTO) 13 % (22-44); MD NO; MEAN CORPUSCULAR HEMOGLOBIN 31.3 pg (27.5-34.5); MEAN CORPUSCULAR HGB CONC 33.3 g/dL (33.2-36.2); MEAN CORPUSCULAR VOLUME 93.9 fL (81-97); MEAN PLATELET VOLUME 10.2 fL (7.4-10.4); MONOCYTES # (AUTO) 0.38 x10^3/uL (0.2-0.8); MONOCYTES % (AUTO) 7 % (2-9); NEUTROPHILS # (AUTO) 4.17 x10^3/uL (1.8-6.8); NEUTROPHILS % (AUTO) 77 % (42-75); PLATELET COUNT 132 x10^3/uL (130-400); RED BLOOD COUNT 2.48 x10^6/uL (4.38-5.82); RED CELL DISTRIBUTION WIDTH 15.9 % (9.4-14.8)
[2017-03-01] MEDS: LIDOCAINE-MPF 1%, 2ML ENDO PRN ×2 (04:49→19:14)
[2017-03-01] MEDS: INSULIN ASPART 100 UNITS/ML, PEN SQ-INSULIN SCH ×3 (05:10→18:13)
[2017-03-01] MEDS: ASPIRIN 81 MG TABLET EC PO SCH (06:00)
[2017-03-01] MEDS: FUROSEMIDE 40 MG/4 ML IV SCH ×2 (06:08→14:54)
[2017-03-01] MEDS: ALBUMIN HUMAN 25% 100 ML IV SCH ×3 (06:08→22:11)
[2017-03-01] MEDS: POTASSIUM CHLORIDE 20 MEQ TAB.ER.PRT PO SCH (08:40)
[2017-03-01] MEDS: AMIODARONE 200 MG TABLET PO SCH ×2 (08:40→22:11)
[2017-03-01] MEDS: SENNOSIDES 8.8 MG/5 ML ORAL SOL PO SCH (09:00)
[2017-03-01] MEDS: DOCUSATE 50 MG/5 ML, 10ML UDC PO SCH (09:00)
[2017-03-01] MEDS: LACTULOSE 20 GM/30 ML UDC NG SCH (09:00)
[2017-03-01] MEDS: POTASSIUM CHLORIDE 20 MEQ PACKET PO SCH (18:14)
[2017-03-02] MEDS: FUROSEMIDE 40 MG/4 ML IV SCH ×4 (00:09→21:41)
[2017-03-02] MEDS: INSULIN ASPART 100 UNITS/ML, PEN SQ-INSULIN SCH ×5 (00:09→23:23)
[2017-03-02] MEDS: ALBUTEROL/IPRATROPIUM 2.5MG/0.5MG, 3 ML NPPB SCH ×6 (02:44→22:58)
[2017-03-02 04:00] VITALS: BP 118/63
[2017-03-02] MEDS: AMPICILLIN/SULBACTAM 3 GM in SODIUM CHLORIDE 0.9% 100 ML IV SCH (05:42)
[2017-03-02] MEDS: LIDOCAINE-MPF 1%, 2ML ENDO PRN (05:43)
[2017-03-02] MEDS: ALBUMIN HUMAN 25% 100 ML IV SCH ×3 (05:49→21:41)
[2017-03-02 06:08] LABS: BASOPHILS # (AUTO) 0.02 x10^3/uL (0-0.1); BASOPHILS % (AUTO) 0 % (0-1); EOSINOPHILS # (AUTO) 0.09 x10^3/uL (0-0.4); EOSINOPHILS % (AUTO) 1 % (1-7); LYMPHOCYTES # (AUTO) 0.57 x10^3/uL (1-3.4); LYMPHOCYTES % (AUTO) 9 % (22-44); MD NO; MEAN CORPUSCULAR HEMOGLOBIN 30.6 pg (27.5-34.5); MEAN CORPUSCULAR HGB CONC 32.2 g/dL (33.2-36.2); MEAN CORPUSCULAR VOLUME 95.1 fL (81-97); MEAN PLATELET VOLUME 10.2 fL (7.4-10.4); MONOCYTES # (AUTO) 0.37 x10^3/uL (0.2-0.8); MONOCYTES % (AUTO) 6 % (2-9); NEUTROPHILS # (AUTO) 5.18 x10^3/uL (1.8-6.8); NEUTROPHILS % (AUTO) 83 % (42-75); PLATELET COUNT 161 x10^3/uL (130-400); RED BLOOD COUNT 2.48 x10^6/uL (4.38-5.82); RED CELL DISTRIBUTION WIDTH 16.3 % (9.4-14.8)
[2017-03-02 06:12] LABS: ANION GAP 7 mmol/L (5-15); CALCIUM 8.5 mg/dL (8.5-10.1); CHLORIDE 103 mmol/L (98-107); CREATININE 1.74 mg/dL (0.7-1.3)
[2017-03-02] MEDS: ASPIRIN 81 MG TABLET EC PO SCH (06:41)
[2017-03-02] MEDS: SENNOSIDES 8.8 MG/5 ML ORAL SOL PO SCH (08:03)
[2017-03-02] MEDS: DOCUSATE 50 MG/5 ML, 10ML UDC PO SCH (08:03)
[2017-03-02] MEDS: LACTULOSE 20 GM/30 ML UDC NG SCH (08:03)
[2017-03-02] MEDS: AMIODARONE 200 MG TABLET PO SCH ×2 (08:20→21:41)
[2017-03-02] MEDS: POTASSIUM CHLORIDE 20 MEQ PACKET PO SCH ×2 (08:20→16:50)
[2017-03-02 09:18] LABS: OCCULT BLOOD POSITIVE (NEGATIVE)
[2017-03-03] MEDS: ALBUTEROL/IPRATROPIUM 2.5MG/0.5MG, 3 ML NPPB SCH ×6 (02:09→22:12)
[2017-03-03 04:59] LABS: MEAN CORPUSCULAR HEMOGLOBIN 30.8 pg (27.5-34.5); MEAN CORPUSCULAR HGB CONC 32.2 g/dL (33.2-36.2); MEAN CORPUSCULAR VOLUME 95.5 fL (81-97); MEAN PLATELET VOLUME 10.4 fL (7.4-10.4); PLATELET COUNT 164 x10^3/uL (130-400); RED BLOOD COUNT 2.44 x10^6/uL (4.38-5.82); RED CELL DISTRIBUTION WIDTH 16.8 % (9.4-14.8)
[2017-03-03 05:03] LABS: ANION GAP 8 mmol/L (5-15); CALCIUM 8.7 mg/dL (8.5-10.1); CHLORIDE 103 mmol/L (98-107)
[2017-03-03] MEDS: INSULIN ASPART 100 UNITS/ML, PEN SQ-INSULIN SCH ×4 (05:14→22:04)
[2017-03-03] MEDS: ALBUMIN HUMAN 25% 100 ML IV SCH (05:16)
[2017-03-03] MEDS: FUROSEMIDE 40 MG/4 ML IV SCH (05:17)
[2017-03-03] MEDS: ASPIRIN 81 MG TABLET EC PO SCH (05:18)
[2017-03-03 07:17] LABS: BASOPHILS # (AUTO) 0.01 x10^3/uL (0-0.1); BASOPHILS % (AUTO) 0 % (0-1); EOSINOPHILS # (AUTO) 0.07 x10^3/uL (0-0.4); EOSINOPHILS % (AUTO) 1 % (1-7); LYMPHOCYTES # (AUTO) 0.51 x10^3/uL (1-3.4); LYMPHOCYTES % (AUTO) 7 % (22-44); MD SCAN; MONOCYTES # (AUTO) 0.43 x10^3/uL (0.2-0.8); MONOCYTES % (AUTO) 6 % (2-9); NEUTROPHILS # (AUTO) 6.45 x10^3/uL (1.8-6.8); NEUTROPHILS % (AUTO) 86 % (42-75)
[2017-03-03] MEDS: POTASSIUM CHLORIDE 20 MEQ PACKET PO SCH (07:56)
[2017-03-03] MEDS: AMIODARONE 200 MG TABLET PO SCH ×2 (07:56→22:03)
[2017-03-03] MEDS: SENNOSIDES 8.8 MG/5 ML ORAL SOL PO SCH (07:59)
[2017-03-03] MEDS: DOCUSATE 50 MG/5 ML, 10ML UDC PO SCH (07:59)
[2017-03-03] MEDS: LACTULOSE 20 GM/30 ML UDC NG SCH (07:59)
[2017-03-03] MEDS: INSULIN DETEMIR 100 UNITS/ML, PEN SQ-INSULIN SCH ×2 (08:04→22:03)
[2017-03-03] MEDS: ACETAMINOPHEN 650 MG/20.3 ML UDC NG PRN ×2 (15:24→22:03)
[2017-03-04] MEDS: ALBUTEROL/IPRATROPIUM 2.5MG/0.5MG, 3 ML NPPB SCH ×6 (02:25→22:15)
[2017-03-04 04:56] LABS: MEAN CORPUSCULAR HEMOGLOBIN 30.8 pg (27.5-34.5); MEAN CORPUSCULAR HGB CONC 32.3 g/dL (33.2-36.2); MEAN CORPUSCULAR VOLUME 95.4 fL (81-97); MEAN PLATELET VOLUME 10.8 fL (7.4-10.4); PLATELET COUNT 185 x10^3/uL (130-400); RED BLOOD COUNT 2.53 x10^6/uL (4.38-5.82); RED CELL DISTRIBUTION WIDTH 17.5 % (9.4-14.8)
[2017-03-04 05:24] LABS: BASOPHILS # (AUTO) 0.01 x10^3/uL (0-0.1); BASOPHILS % (AUTO) 0 % (0-1); EOSINOPHILS # (AUTO) 0.04 x10^3/uL (0-0.4); EOSINOPHILS % (AUTO) 1 % (1-7); LYMPHOCYTES # (AUTO) 0.51 x10^3/uL (1-3.4); LYMPHOCYTES % (AUTO) 6 % (22-44); MD SCAN; MONOCYTES # (AUTO) 0.48 x10^3/uL (0.2-0.8); MONOCYTES % (AUTO) 6 % (2-9); NEUTROPHILS # (AUTO) 7.62 x10^3/uL (1.8-6.8); NEUTROPHILS % (AUTO) 88 % (42-75)
[2017-03-04 06:01] LABS: ANION GAP 7 mmol/L (5-15); CALCIUM 9.2 mg/dL (8.5-10.1); CHLORIDE 105 mmol/L (98-107); CREATININE 1.81 mg/dL (0.7-1.3)
[2017-03-04] MEDS: ACETAMINOPHEN 650 MG/20.3 ML UDC NG PRN (06:03)
[2017-03-04] MEDS: ASPIRIN 81 MG TABLET CHEW PO SCH (06:03)
[2017-03-04] MEDS: INSULIN ASPART 100 UNITS/ML, PEN SQ-INSULIN SCH ×4 (06:09→22:01)
[2017-03-04] MEDS: SENNOSIDES 8.8 MG/5 ML ORAL SOL PO SCH (07:54)
[2017-03-04] MEDS: DOCUSATE 50 MG/5 ML, 10ML UDC PO SCH (07:54)
[2017-03-04] MEDS: LACTULOSE 20 GM/30 ML UDC NG SCH (07:54)
[2017-03-04] MEDS: INSULIN DETEMIR 100 UNITS/ML, PEN SQ-INSULIN SCH ×2 (08:25→22:01)
[2017-03-04] MEDS: AMIODARONE 200 MG TABLET PO SCH ×2 (08:25→22:00)
[2017-03-05] MEDS: ACETAMINOPHEN 650 MG/20.3 ML UDC NG PRN ×2 (01:33→22:21)
[2017-03-05] MEDS: ALBUTEROL/IPRATROPIUM 2.5MG/0.5MG, 3 ML NPPB SCH ×6 (03:00→22:05)
[2017-03-05 04:37] LABS: BASOPHILS # (AUTO) 0.04 x10^3/uL (0-0.1); BASOPHILS % (AUTO) 1 % (0-1); EOSINOPHILS # (AUTO) 0.08 x10^3/uL (0-0.4); EOSINOPHILS % (AUTO) 1 % (1-7); LYMPHOCYTES % (AUTO) 9 % (22-44); MD NO; MEAN CORPUSCULAR HEMOGLOBIN 30.6 pg (27.5-34.5); MEAN CORPUSCULAR VOLUME 95.7 fL (81-97); MONOCYTES # (AUTO) 0.44 x10^3/uL (0.2-0.8); MONOCYTES % (AUTO) 6 % (2-9); NEUTROPHILS % (AUTO) 84 % (42-75); PLATELET COUNT 186 x10^3/uL (130-400); RED BLOOD COUNT 2.52 x10^6/uL (4.38-5.82); RED CELL DISTRIBUTION WIDTH 17.8 % (9.4-14.8)
[2017-03-05 04:52] LABS: CALCIUM 8.7 mg/dL (8.5-10.1); CHLORIDE 106 mmol/L (98-107)
[2017-03-05 04:54] LABS: ANION GAP 7 mmol/L (5-15); CREATININE 1.78 mg/dL (0.7-1.3)
[2017-03-05] MEDS: ASPIRIN 81 MG TABLET CHEW PO SCH (05:07)
[2017-03-05] MEDS: INSULIN ASPART 100 UNITS/ML, PEN SQ-INSULIN SCH ×4 (05:08→22:30)
[2017-03-05] MEDS: AMIODARONE 200 MG TABLET PO SCH ×2 (07:29→20:51)
[2017-03-05] MEDS: INSULIN DETEMIR 100 UNITS/ML, PEN SQ-INSULIN SCH ×3 (07:30→19:46)
[2017-03-05] MEDS: SENNOSIDES 8.8 MG/5 ML ORAL SOL PO SCH (07:30)
[2017-03-05] MEDS: DOCUSATE 50 MG/5 ML, 10ML UDC PO SCH (07:30)
[2017-03-05] MEDS: LACTULOSE 20 GM/30 ML UDC NG SCH (07:31)
[2017-03-06] MEDS: ALBUTEROL/IPRATROPIUM 2.5MG/0.5MG, 3 ML NPPB SCH ×6 (02:20→23:00)
[2017-03-06 04:27] LABS: BASOPHILS # (AUTO) 0.02 x10^3/uL (0-0.1); BASOPHILS % (AUTO) 0 % (0-1); EOSINOPHILS # (AUTO) 0.14 x10^3/uL (0-0.4); EOSINOPHILS % (AUTO) 2 % (1-7); LYMPHOCYTES # (AUTO) 0.58 x10^3/uL (1-3.4); LYMPHOCYTES % (AUTO) 8 % (22-44); MD NO; MEAN CORPUSCULAR HEMOGLOBIN 30.5 pg (27.5-34.5); MEAN CORPUSCULAR HGB CONC 31.9 g/dL (33.2-36.2); MEAN CORPUSCULAR VOLUME 95.4 fL (81-97); MEAN PLATELET VOLUME 10.9 fL (7.4-10.4); MONOCYTES # (AUTO) 0.45 x10^3/uL (0.2-0.8); MONOCYTES % (AUTO) 6 % (2-9); NEUTROPHILS # (AUTO) 5.94 x10^3/uL (1.8-6.8); NEUTROPHILS % (AUTO) 83 % (42-75); PLATELET COUNT 186 x10^3/uL (130-400); RED BLOOD COUNT 2.59 x10^6/uL (4.38-5.82); RED CELL DISTRIBUTION WIDTH 17.3 % (9.4-14.8)
[2017-03-06] MEDS: ASPIRIN 81 MG TABLET CHEW PO SCH (05:53)
[2017-03-06] MEDS: INSULIN ASPART 100 UNITS/ML, PEN SQ-INSULIN SCH ×4 (05:53→23:03)
[2017-03-06] MEDS: LORazepam 2 MG/ML, 1ML IVPush PRN (08:05)
[2017-03-06] MEDS: INSULIN DETEMIR 100 UNITS/ML, PEN SQ-INSULIN SCH ×2 (08:05→19:48)
[2017-03-06] MEDS: AMIODARONE 200 MG TABLET PO SCH ×2 (08:05→20:59)
[2017-03-06] MEDS ORDERED: SENNOSIDES 8.8 MG/5 ML ORAL SOL PO PRN (09:00)
[2017-03-06] MEDS ORDERED: DOCUSATE 50 MG/5 ML, 10ML UDC PO PRN (09:00)
[2017-03-06] MEDS: HEPARIN 5,000 UNITS/ML, 1ML SQ SCH ×2 (10:28→16:58)
[2017-03-06] MEDS: ACETAMINOPHEN 650 MG/20.3 ML UDC NG PRN (22:12)
[2017-03-07] MEDS: HEPARIN 5,000 UNITS/ML, 1ML SQ SCH ×3 (02:58→18:50)
[2017-03-07] MEDS: ALBUTEROL/IPRATROPIUM 2.5MG/0.5MG, 3 ML NPPB SCH ×6 (03:00→22:28)
[2017-03-07 04:47] LABS: ALBUMIN 3.3 g/dL (3.4-5.0); ANION GAP 5 mmol/L (5-15); CALCIUM 8.7 mg/dL (8.5-10.1); CHLORIDE 111 mmol/L (98-107)
[2017-03-07 04:51] LABS: ALANINE AMINOTRANSFERASE 50 U/L (12-78); ALKALINE PHOSPHATASE 64 U/L (45-117); BILIRUBIN,TOTAL 0.9 mg/dL (0.2-1.0); CREATININE 1.55 mg/dL (0.7-1.3); TOTAL PROTEIN 6.6 g/dL (6.4-8.2); TRIGLYCERIDES 123 mg/dL (50-200)
[2017-03-07] MEDS: INSULIN ASPART 100 UNITS/ML, PEN SQ-INSULIN SCH ×4 (05:13→22:14)
[2017-03-07] MEDS: ASPIRIN 81 MG TABLET CHEW PO SCH (05:24)
[2017-03-07 05:43] LABS: BASOPHILS # (AUTO) 0.01 x10^3/uL (0-0.1); BASOPHILS % (AUTO) 0 % (0-1); EOSINOPHILS # (AUTO) 0.13 x10^3/uL (0-0.4); EOSINOPHILS % (AUTO) 2 % (1-7); LYMPHOCYTES # (AUTO) 0.61 x10^3/uL (1-3.4); LYMPHOCYTES % (AUTO) 10 % (22-44); MD NO; MEAN CORPUSCULAR HEMOGLOBIN 30.7 pg (27.5-34.5); MEAN CORPUSCULAR HGB CONC 31.9 g/dL (33.2-36.2); MEAN CORPUSCULAR VOLUME 96.1 fL (81-97); MEAN PLATELET VOLUME 10.7 fL (7.4-10.4); MONOCYTES % (AUTO) 6 % (2-9); NEUTROPHILS # (AUTO) 5.08 x10^3/uL (1.8-6.8); NEUTROPHILS % (AUTO) 82 % (42-75); PLATELET COUNT 202 x10^3/uL (130-400); RED BLOOD COUNT 2.55 x10^6/uL (4.38-5.82); RED CELL DISTRIBUTION WIDTH 17.5 % (9.4-14.8)
[2017-03-07] MEDS: FUROSEMIDE 40 MG/4 ML IV SCH ×2 (08:42→22:13)
[2017-03-07] MEDS: AMIODARONE 200 MG TABLET PO SCH ×2 (08:42→22:13)
[2017-03-07] MEDS: INSULIN DETEMIR 100 UNITS/ML, PEN SQ-INSULIN SCH ×2 (08:43→22:14)
[2017-03-08] MEDS: HEPARIN 5,000 UNITS/ML, 1ML SQ SCH ×3 (01:52→17:36)
[2017-03-08] MEDS: ALBUTEROL/IPRATROPIUM 2.5MG/0.5MG, 3 ML NPPB SCH ×6 (02:53→22:00)
[2017-03-08 04:29] LABS: BASOPHILS # (AUTO) 0.01 x10^3/uL (0-0.1); BASOPHILS % (AUTO) 0 % (0-1); EOSINOPHILS # (AUTO) 0.09 x10^3/uL (0-0.4); EOSINOPHILS % (AUTO) 2 % (1-7); LYMPHOCYTES # (AUTO) 0.74 x10^3/uL (1-3.4); LYMPHOCYTES % (AUTO) 13 % (22-44); MD NO; MEAN CORPUSCULAR HGB CONC 32.1 g/dL (33.2-36.2); MEAN CORPUSCULAR VOLUME 96.7 fL (81-97); MEAN PLATELET VOLUME 10.7 fL (7.4-10.4); MONOCYTES # (AUTO) 0.42 x10^3/uL (0.2-0.8); MONOCYTES % (AUTO) 7 % (2-9); NEUTROPHILS # (AUTO) 4.43 x10^3/uL (1.8-6.8); NEUTROPHILS % (AUTO) 78 % (42-75); PLATELET COUNT 188 x10^3/uL (130-400); RED BLOOD COUNT 2.62 x10^6/uL (4.38-5.82); RED CELL DISTRIBUTION WIDTH 18.8 % (9.4-14.8)
[2017-03-08] MEDS: ASPIRIN 81 MG TABLET CHEW PO SCH (05:06)
[2017-03-08] MEDS: INSULIN ASPART 100 UNITS/ML, PEN SQ-INSULIN SCH ×4 (05:07→23:12)
[2017-03-08 05:18] LABS: ALANINE AMINOTRANSFERASE 46 U/L (12-78); ALBUMIN 3.2 g/dL (3.4-5.0); ANION GAP 7 mmol/L (5-15); CALCIUM 8.8 mg/dL (8.5-10.1); CHLORIDE 111 mmol/L (98-107)
[2017-03-08 05:21] LABS: ALKALINE PHOSPHATASE 65 U/L (45-117); BILIRUBIN,TOTAL 0.6 mg/dL (0.2-1.0); CREATININE 1.64 mg/dL (0.7-1.3); TOTAL PROTEIN 6.8 g/dL (6.4-8.2)
[2017-03-08] MEDS: LACTULOSE 20 GM/30 ML UDC NG PRN (08:37)
[2017-03-08] MEDS: INSULIN DETEMIR 100 UNITS/ML, PEN SQ-INSULIN SCH ×2 (08:37→20:42)
[2017-03-08] MEDS: AMIODARONE 200 MG TABLET PO SCH ×2 (08:37→20:42)
[2017-03-09] MEDS: HEPARIN 5,000 UNITS/ML, 1ML SQ SCH ×3 (02:00→17:23)
[2017-03-09] MEDS: ALBUTEROL/IPRATROPIUM 2.5MG/0.5MG, 3 ML NPPB SCH ×6 (02:10→22:22)
[2017-03-09 04:53] LABS: BASOPHILS # (AUTO) 0.02 x10^3/uL (0-0.1); BASOPHILS % (AUTO) 0 % (0-1); EOSINOPHILS # (AUTO) 0.15 x10^3/uL (0-0.4); EOSINOPHILS % (AUTO) 2 % (1-7); LYMPHOCYTES # (AUTO) 0.65 x10^3/uL (1-3.4); LYMPHOCYTES % (AUTO) 11 % (22-44); MD NO; MEAN CORPUSCULAR HEMOGLOBIN 30.7 pg (27.5-34.5); MEAN CORPUSCULAR HGB CONC 31.8 g/dL (33.2-36.2); MEAN CORPUSCULAR VOLUME 96.6 fL (81-97); MONOCYTES # (AUTO) 0.44 x10^3/uL (0.2-0.8); MONOCYTES % (AUTO) 7 % (2-9); NEUTROPHILS # (AUTO) 4.97 x10^3/uL (1.8-6.8); NEUTROPHILS % (AUTO) 80 % (42-75); PLATELET COUNT 213 x10^3/uL (130-400); RED CELL DISTRIBUTION WIDTH 17.3 % (9.4-14.8)
[2017-03-09 05:10] LABS: ANION GAP 8 mmol/L (5-15); CALCIUM 8.8 mg/dL (8.5-10.1); CHLORIDE 116 mmol/L (98-107); CREATININE 1.63 mg/dL (0.7-1.3)
[2017-03-09] MEDS: INSULIN ASPART 100 UNITS/ML, PEN SQ-INSULIN SCH ×4 (05:59→23:49)
[2017-03-09] MEDS: ASPIRIN 81 MG TABLET CHEW PO SCH (06:00)
[2017-03-09] MEDS: AMIODARONE 200 MG TABLET PO SCH ×2 (08:46→21:31)
[2017-03-09] MEDS: INSULIN DETEMIR 100 UNITS/ML, PEN SQ-INSULIN SCH ×2 (09:31→21:31)
[2017-03-10] MEDS: HEPARIN 5,000 UNITS/ML, 1ML SQ SCH ×3 (02:18→18:19)
[2017-03-10] MEDS: ALBUTEROL/IPRATROPIUM 2.5MG/0.5MG, 3 ML NPPB SCH ×6 (02:23→23:00)
[2017-03-10 04:31] LABS: BASOPHILS # (AUTO) 0.02 x10^3/uL (0-0.1); BASOPHILS % (AUTO) 0 % (0-1); EOSINOPHILS % (AUTO) 3 % (1-7); LYMPHOCYTES # (AUTO) 0.71 x10^3/uL (1-3.4); LYMPHOCYTES % (AUTO) 12 % (22-44); MD NO; MEAN CORPUSCULAR HEMOGLOBIN 30.7 pg (27.5-34.5); MEAN CORPUSCULAR HGB CONC 31.6 g/dL (33.2-36.2); MEAN CORPUSCULAR VOLUME 97.1 fL (81-97); MEAN PLATELET VOLUME 10.7 fL (7.4-10.4); MONOCYTES # (AUTO) 0.51 x10^3/uL (0.2-0.8); MONOCYTES % (AUTO) 8 % (2-9); NEUTROPHILS # (AUTO) 4.65 x10^3/uL (1.8-6.8); NEUTROPHILS % (AUTO) 76 % (42-75); PLATELET COUNT 221 x10^3/uL (130-400); RED BLOOD COUNT 2.71 x10^6/uL (4.38-5.82); RED CELL DISTRIBUTION WIDTH 18.2 % (9.4-14.8)
[2017-03-10] MEDS: INSULIN ASPART 100 UNITS/ML, PEN SQ-INSULIN SCH ×4 (05:27→21:50)
[2017-03-10 06:32] LABS: ALANINE AMINOTRANSFERASE 40 U/L (12-78); ALBUMIN 3.1 g/dL (3.4-5.0); ANION GAP 8 mmol/L (5-15); CALCIUM 8.6 mg/dL (8.5-10.1); CHLORIDE 118 mmol/L (98-107); CREATININE 1.63 mg/dL (0.7-1.3)
[2017-03-10 06:35] LABS: ALKALINE PHOSPHATASE 51 U/L (45-117); BILIRUBIN,TOTAL 0.7 mg/dL (0.2-1.0); TOTAL PROTEIN 6.6 g/dL (6.4-8.2)
[2017-03-10] MEDS: ASPIRIN 81 MG TABLET CHEW PO SCH (09:46)
[2017-03-10] MEDS: AMIODARONE 200 MG TABLET PO SCH ×2 (09:47→21:54)
[2017-03-10] MEDS: INSULIN DETEMIR 100 UNITS/ML, PEN SQ-INSULIN SCH ×2 (09:48→21:51)
[2017-03-11] MEDS: HEPARIN 5,000 UNITS/ML, 1ML SQ SCH ×3 (01:06→18:26)
[2017-03-11] MEDS: ALBUTEROL/IPRATROPIUM 2.5MG/0.5MG, 3 ML NPPB SCH ×5 (03:00→23:00)
[2017-03-11 04:23] LABS: BASOPHILS # (AUTO) 0.03 x10^3/uL (0-0.1); BASOPHILS % (AUTO) 1 % (0-1); EOSINOPHILS # (AUTO) 0.17 x10^3/uL (0-0.4); EOSINOPHILS % (AUTO) 3 % (1-7); LYMPHOCYTES # (AUTO) 0.88 x10^3/uL (1-3.4); LYMPHOCYTES % (AUTO) 14 % (22-44); MD NO; MEAN CORPUSCULAR HEMOGLOBIN 30.6 pg (27.5-34.5); MEAN CORPUSCULAR HGB CONC 31.7 g/dL (33.2-36.2); MEAN CORPUSCULAR VOLUME 96.5 fL (81-97); MEAN PLATELET VOLUME 10.6 fL (7.4-10.4); MONOCYTES # (AUTO) 0.48 x10^3/uL (0.2-0.8); MONOCYTES % (AUTO) 8 % (2-9); NEUTROPHILS # (AUTO) 4.62 x10^3/uL (1.8-6.8); NEUTROPHILS % (AUTO) 75 % (42-75); PLATELET COUNT 213 x10^3/uL (130-400); RED BLOOD COUNT 2.73 x10^6/uL (4.38-5.82); RED CELL DISTRIBUTION WIDTH 18.9 % (9.4-14.8)
[2017-03-11 04:35] LABS: ALANINE AMINOTRANSFERASE 34 U/L (12-78); ANION GAP 7 mmol/L (5-15); CALCIUM 8.4 mg/dL (8.5-10.1); CHLORIDE 118 mmol/L (98-107); CREATININE 1.63 mg/dL (0.7-1.3)
[2017-03-11 04:37] LABS: ALKALINE PHOSPHATASE 50 U/L (45-117); BILIRUBIN,TOTAL 0.8 mg/dL (0.2-1.0); TOTAL PROTEIN 6.7 g/dL (6.4-8.2)
[2017-03-11] MEDS: INSULIN ASPART 100 UNITS/ML, PEN SQ-INSULIN SCH ×4 (05:13→20:59)
[2017-03-11] MEDS: ASPIRIN 81 MG TABLET CHEW PO SCH (05:46)
[2017-03-11] MEDS ORDERED: DIGOXIN 0.25 MG/ML, 2ML IVPush ONE (08:30)
[2017-03-11] MEDS: INSULIN DETEMIR 100 UNITS/ML, PEN SQ-INSULIN SCH ×2 (08:50→20:59)
[2017-03-11] MEDS: AMIODARONE 200 MG TABLET PO SCH ×2 (08:52→20:57)
[2017-03-11] MEDS: DIGOXIN 0.25 MG/ML, 2ML IVPush SCH ×2 (14:50→20:57)
[2017-03-12] MEDS: HEPARIN 5,000 UNITS/ML, 1ML SQ SCH ×3 (02:36→18:32)
[2017-03-12] MEDS: ALBUTEROL/IPRATROPIUM 2.5MG/0.5MG, 3 ML NPPB SCH ×6 (03:00→22:58)
[2017-03-12] MEDS: ASPIRIN 81 MG TABLET CHEW PO SCH (05:03)
[2017-03-12] MEDS: INSULIN ASPART 100 UNITS/ML, PEN SQ-INSULIN SCH ×4 (05:03→23:00)
[2017-03-12 05:15] LABS: ALANINE AMINOTRANSFERASE 34 U/L (12-78); ALBUMIN 2.9 g/dL (3.4-5.0); ANION GAP 8 mmol/L (5-15); CHLORIDE 114 mmol/L (98-107); CREATININE 1.49 mg/dL (0.7-1.3)
[2017-03-12 05:17] LABS: ALKALINE PHOSPHATASE 60 U/L (45-117); BILIRUBIN,TOTAL 0.7 mg/dL (0.2-1.0); TOTAL PROTEIN 6.4 g/dL (6.4-8.2)
[2017-03-12 05:51] LABS: MD YES; MEAN CORPUSCULAR HEMOGLOBIN 31.1 pg (27.5-34.5); MEAN CORPUSCULAR HGB CONC 32.2 g/dL (33.2-36.2); MEAN CORPUSCULAR VOLUME 96.5 fL (81-97); MEAN PLATELET VOLUME 10.1 fL (7.4-10.4); PLATELET COUNT 196 x10^3/uL (130-400); RED BLOOD COUNT 2.65 x10^6/uL (4.38-5.82); RED CELL DISTRIBUTION WIDTH 18.2 % (9.4-14.8)
[2017-03-12 05:53] LABS: ANISOCYTOSIS 1+; BAND#(MANUAL) 0.09 x10^3/uL; BANDS%(MANUAL) 1 % (0-7); LYMPH#(MANUAL) 0.79 x10^3/uL (1-3.4); LYMPHS% (MANUAL) 9 % (22-44); MONOS#(MANUAL) 0.44 x10^3/uL (0.3-2.7); MONOS% (MANUAL) 5 % (2-9); SEG#(MANUAL) 7.48 x10^3/uL (1.8-6.8); SEGS% (MANUAL) 85 % (42-75)
[2017-03-12 05:54] LABS: <PLATELET ESTIMATE> ADEQUATE; <PLT MORPHOLOGY> NORMAL PLT MORPH; POLYCHROMASIA 1+
[2017-03-12] MEDS ORDERED: FUROSEMIDE 40 MG/4 ML IV ONE (08:30)
[2017-03-12] MEDS: INSULIN DETEMIR 100 UNITS/ML, PEN SQ-INSULIN SCH ×2 (09:50→20:34)
[2017-03-12] MEDS: AMIODARONE 200 MG TABLET PO SCH ×2 (09:51→20:35)
[2017-03-12] MEDS: DIGOXIN 0.125 MG TABLET PO SCH (09:52)
[2017-03-12] MEDS ORDERED: ENOXAPARIN 40 MG/0.4 ML SQ SCH (21:00)
[2017-03-13] MEDS: HEPARIN 5,000 UNITS/ML, 1ML SQ SCH ×3 (02:36→17:18)
[2017-03-13] MEDS: ALBUTEROL/IPRATROPIUM 2.5MG/0.5MG, 3 ML NPPB SCH ×6 (02:56→22:20)
[2017-03-13] MEDS: INSULIN ASPART 100 UNITS/ML, PEN SQ-INSULIN SCH ×4 (05:12→23:21)
[2017-03-13] MEDS: ASPIRIN 81 MG TABLET CHEW PO SCH (05:13)
[2017-03-13 05:50] LABS: MEAN CORPUSCULAR HEMOGLOBIN 30.4 pg (27.5-34.5); MEAN CORPUSCULAR HGB CONC 31.5 g/dL (33.2-36.2); MEAN CORPUSCULAR VOLUME 96.4 fL (81-97); MEAN PLATELET VOLUME 10.8 fL (7.4-10.4); PLATELET COUNT 202 x10^3/uL (130-400); RED BLOOD COUNT 2.65 x10^6/uL (4.38-5.82); RED CELL DISTRIBUTION WIDTH 17.6 % (9.4-14.8)
[2017-03-13 05:56] LABS: ANION GAP 10 mmol/L (5-15); CALCIUM 8.1 mg/dL (8.5-10.1); CHLORIDE 113 mmol/L (98-107); CREATININE 1.49 mg/dL (0.7-1.3)
[2017-03-13 06:11] LABS: MD YES
[2017-03-13 06:14] LABS: BAND#(MANUAL) 0.28 x10^3/uL; BANDS%(MANUAL) 4 % (0-7); EOS#(MANUAL) 0.36 x10^3/uL (0.0-0.4); EOS% (MANUAL) 5 % (1-7); LYMPH#(MANUAL) 0.64 x10^3/uL (1-3.4); LYMPHS% (MANUAL) 9 % (22-44); MONOS#(MANUAL) 0.43 x10^3/uL (0.3-2.7); MONOS% (MANUAL) 6 % (2-9); SEGS% (MANUAL) 76 % (42-75)
[2017-03-13 06:16] LABS: ANISOCYTOSIS 1+; POLYCHROMASIA 1+
[2017-03-13 06:17] LABS: OVALOCYTES 1+
[2017-03-13 06:18] LABS: <PLATELET ESTIMATE> ADEQUATE; SCHISTOCYTES 1+
[2017-03-13 06:19] LABS: LARGE PLATELETS 1+; NRBC % (MANUAL) 1 % (0-1)
[2017-03-13] MEDS ORDERED: FUROSEMIDE 40 MG/4 ML IV ONE (09:00)
[2017-03-13] MEDS: INSULIN DETEMIR 100 UNITS/ML, PEN SQ-INSULIN SCH ×2 (10:03→21:03)
[2017-03-13] MEDS: AMIODARONE 200 MG TABLET PO SCH ×2 (10:05→21:04)
[2017-03-13] MEDS: DIGOXIN 0.125 MG TABLET PO SCH (10:05)
[2017-03-13] MEDS: CHOLESTYRAMINE LIGHT 4GM PACKET PO SCH (12:11)
[2017-03-14] MEDS: ALBUTEROL/IPRATROPIUM 2.5MG/0.5MG, 3 ML NPPB SCH ×6 (02:06→22:26)
[2017-03-14] MEDS: HEPARIN 5,000 UNITS/ML, 1ML SQ SCH ×3 (02:51→17:44)
[2017-03-14] MEDS: CHOLESTYRAMINE LIGHT 4GM PACKET PO SCH ×3 (02:51→23:25)
[2017-03-14] MEDS: ASPIRIN 81 MG TABLET CHEW PO SCH (05:28)
[2017-03-14] MEDS: INSULIN ASPART 100 UNITS/ML, PEN SQ-INSULIN SCH ×4 (05:31→21:59)
[2017-03-14 05:39] LABS: ANION GAP 9 mmol/L (5-15); CALCIUM 8.1 mg/dL (8.5-10.1); CHLORIDE 112 mmol/L (98-107); CREATININE 1.38 mg/dL (0.7-1.3)
[2017-03-14 06:06] LABS: MEAN CORPUSCULAR HEMOGLOBIN 30.2 pg (27.5-34.5); MEAN CORPUSCULAR HGB CONC 31.4 g/dL (33.2-36.2); MEAN CORPUSCULAR VOLUME 96.4 fL (81-97); MEAN PLATELET VOLUME 11.7 fL (7.4-10.4); PLATELET COUNT 208 x10^3/uL (130-400); RED BLOOD COUNT 2.74 x10^6/uL (4.38-5.82); RED CELL DISTRIBUTION WIDTH 17.7 % (9.4-14.8)
[2017-03-14 06:36] LABS: MD YES
[2017-03-14 06:38] LABS: BAND#(MANUAL) 0.08 x10^3/uL; BANDS%(MANUAL) 1 % (0-7); EOS#(MANUAL) 0.16 x10^3/uL (0.0-0.4); EOS% (MANUAL) 2 % (1-7); LYMPHS% (MANUAL) 10 % (22-44); MONOS#(MANUAL) 0.56 x10^3/uL (0.3-2.7); MONOS% (MANUAL) 7 % (2-9); REACTIVE LYMPHS # (MANUAL) 0.08 x10^3/uL (0-0); REACTIVE LYMPHS % (MANUAL) 1 % (0-0); SEG#(MANUAL) 6.32 x10^3/uL (1.8-6.8); SEGS% (MANUAL) 79 % (42-75)
[2017-03-14 06:39] LABS: ANISOCYTOSIS 1+; OVALOCYTES 1+; TEAR DROPS 1+
[2017-03-14 06:40] LABS: HYPOCHROMIA 1+; POLYCHROMASIA 1+
[2017-03-14 06:41] LABS: <PLATELET ESTIMATE> ADEQUATE; LARGE PLATELETS 1+
[2017-03-14] MEDS ORDERED: FUROSEMIDE 40 MG/4 ML IV ONE (08:30)
[2017-03-14] MEDS: INSULIN DETEMIR 100 UNITS/ML, PEN SQ-INSULIN SCH ×2 (08:32→21:58)
[2017-03-14] MEDS: DIGOXIN 0.125 MG TABLET PO SCH (08:32)
[2017-03-14] MEDS: AMIODARONE 200 MG TABLET PO SCH ×2 (08:32→21:41)
[2017-03-15] MEDS: ALBUTEROL/IPRATROPIUM 2.5MG/0.5MG, 3 ML NPPB SCH ×6 (01:49→21:43)
[2017-03-15] MEDS: HEPARIN 5,000 UNITS/ML, 1ML SQ SCH ×3 (02:44→17:27)
[2017-03-15 04:24] LABS: ANION GAP 6 mmol/L (5-15); CALCIUM 7.8 mg/dL (8.5-10.1); CHLORIDE 113 mmol/L (98-107); CREATININE 1.43 mg/dL (0.7-1.3)
[2017-03-15 04:34] LABS: MEAN CORPUSCULAR HEMOGLOBIN 30.3 pg (27.5-34.5); MEAN CORPUSCULAR VOLUME 94.7 fL (81-97); MEAN PLATELET VOLUME 11.8 fL (7.4-10.4); PLATELET COUNT 175 x10^3/uL (130-400); RED BLOOD COUNT 2.59 x10^6/uL (4.38-5.82); RED CELL DISTRIBUTION WIDTH 17.5 % (9.4-14.8)
[2017-03-15] MEDS: INSULIN ASPART 100 UNITS/ML, PEN SQ-INSULIN SCH ×4 (04:54→22:48)
[2017-03-15] MEDS: ASPIRIN 81 MG TABLET CHEW PO SCH (04:57)
[2017-03-15 05:47] LABS: MD YES
[2017-03-15 05:48] LABS: EOS#(MANUAL) 0.08 x10^3/uL (0.0-0.4); EOS% (MANUAL) 1 % (1-7); MONOS#(MANUAL) 0.48 x10^3/uL (0.3-2.7); MONOS% (MANUAL) 6 % (2-9); REACTIVE LYMPHS # (MANUAL) 0.08 x10^3/uL (0-0); REACTIVE LYMPHS % (MANUAL) 1 % (0-0)
[2017-03-15 05:49] LABS: ANISOCYTOSIS 1+; HYPOCHROMIA 1+; LYMPH#(MANUAL) 1.04 x10^3/uL (1-3.4); LYMPHS% (MANUAL) 13 % (22-44); POLYCHROMASIA 1+; SEG#(MANUAL) 6.32 x10^3/uL (1.8-6.8); SEGS% (MANUAL) 79 % (42-75)
[2017-03-15 05:50] LABS: <PLATELET ESTIMATE> ADEQUATE; LARGE PLATELETS 1+; OVALOCYTES 1+
[2017-03-15] MEDS: AMIODARONE 200 MG TABLET PO SCH ×2 (09:47→21:12)
[2017-03-15] MEDS: DIGOXIN 0.125 MG TABLET PO SCH (09:47)
[2017-03-15] MEDS: CHOLESTYRAMINE LIGHT 4GM PACKET PO SCH ×2 (09:47→22:47)
[2017-03-15] MEDS: INSULIN DETEMIR 100 UNITS/ML, PEN SQ-INSULIN SCH ×2 (10:02→22:48)
[2017-03-16] MEDS: ALBUTEROL/IPRATROPIUM 2.5MG/0.5MG, 3 ML NPPB SCH ×6 (01:54→23:05)
[2017-03-16] MEDS: HEPARIN 5,000 UNITS/ML, 1ML SQ SCH ×4 (02:00→21:45)
[2017-03-16 04:40] LABS: MEAN CORPUSCULAR HEMOGLOBIN 31.1 pg (27.5-34.5); MEAN CORPUSCULAR HGB CONC 32.8 g/dL (33.2-36.2); MEAN CORPUSCULAR VOLUME 94.9 fL (81-97); RED BLOOD COUNT 2.66 x10^6/uL (4.38-5.82); RED CELL DISTRIBUTION WIDTH 17.5 % (9.4-14.8)
[2017-03-16 04:49] LABS: ALANINE AMINOTRANSFERASE 24 U/L (12-78); ALBUMIN 2.7 g/dL (3.4-5.0); ANION GAP 8 mmol/L (5-15); CALCIUM 8.7 mg/dL (8.5-10.1); CHLORIDE 115 mmol/L (98-107); CREATININE 1.38 mg/dL (0.7-1.3); TRIGLYCERIDES 102 mg/dL (50-200)
[2017-03-16] MEDS: INSULIN ASPART 100 UNITS/ML, PEN SQ-INSULIN SCH ×4 (05:00→23:49)
[2017-03-16 05:05] LABS: ALKALINE PHOSPHATASE 60 U/L (45-117); BILIRUBIN,TOTAL 0.4 mg/dL (0.2-1.0); TOTAL PROTEIN 6.8 g/dL (6.4-8.2)
[2017-03-16] MEDS: ASPIRIN 81 MG TABLET CHEW PO SCH (05:28)
[2017-03-16 05:36] LABS: MD YES
[2017-03-16 05:37] LABS: MEAN PLATELET VOLUME 11.4 fL (7.4-10.4); PLATELET COUNT 169 x10^3/uL (130-400)
[2017-03-16 05:38] LABS: EOS#(MANUAL) 0.19 x10^3/uL (0.0-0.4); EOS% (MANUAL) 2 % (1-7); LYMPH#(MANUAL) 1.05 x10^3/uL (1-3.4); LYMPHS% (MANUAL) 11 % (22-44); MONOS#(MANUAL) 0.48 x10^3/uL (0.3-2.7); MONOS% (MANUAL) 5 % (2-9); SEG#(MANUAL) 7.79 x10^3/uL (1.8-6.8); SEGS% (MANUAL) 82 % (42-75)
[2017-03-16 05:40] LABS: <PLATELET ESTIMATE> ADEQUATE; ANISOCYTOSIS 1+; HYPOCHROMIA 1+; OVALOCYTES 1+; POLYCHROMASIA 1+; TEAR DROPS 1+
[2017-03-16 05:41] LABS: LARGE PLATELETS 1+
[2017-03-16] MEDS: INSULIN DETEMIR 100 UNITS/ML, PEN SQ-INSULIN SCH ×2 (08:30→21:43)
[2017-03-16] MEDS: CHOLESTYRAMINE LIGHT 4GM PACKET PO SCH ×2 (09:00→21:00)
[2017-03-16] MEDS: AMIODARONE 200 MG TABLET PO SCH ×2 (09:00→21:00)
[2017-03-16] MEDS: DIGOXIN 0.125 MG TABLET PO SCH (09:00)
[2017-03-16] MEDS ORDERED: ROCURONIUM 10MG/ML,5ML ONE (11:22)
[2017-03-16] MEDS ORDERED: CEFAZOLIN 1,000 MG ONE (11:22)
[2017-03-16] MEDS ORDERED: FENTANYL PF 100 MCG/2ML ONE (11:59)
[2017-03-16] MEDS ORDERED: BUPIVACAINE/PF 0.5% INFIL ONE (12:11)
[2017-03-17] MEDS: ALBUTEROL/IPRATROPIUM 2.5MG/0.5MG, 3 ML NPPB SCH ×6 (02:16→21:50)
[2017-03-17] MEDS: INSULIN ASPART 100 UNITS/ML, PEN SQ-INSULIN SCH ×4 (04:27→22:30)
[2017-03-17] MEDS: ASPIRIN 81 MG TABLET CHEW PO SCH (04:27)
[2017-03-17 04:41] LABS: BASOPHILS % (AUTO) 0 % (0-1); EOSINOPHILS # (AUTO) 0.03 x10^3/uL (0-0.4); EOSINOPHILS % (AUTO) 0 % (1-7); LYMPHOCYTES # (AUTO) 0.57 x10^3/uL (1-3.4); LYMPHOCYTES % (AUTO) 5 % (22-44); MD NO; MEAN CORPUSCULAR HEMOGLOBIN 30.5 pg (27.5-34.5); MEAN CORPUSCULAR HGB CONC 32.2 g/dL (33.2-36.2); MEAN CORPUSCULAR VOLUME 94.8 fL (81-97); MONOCYTES # (AUTO) 0.57 x10^3/uL (0.2-0.8); MONOCYTES % (AUTO) 5 % (2-9); NEUTROPHILS % (AUTO) 90 % (42-75); PLATELET COUNT 193 x10^3/uL (130-400); RED BLOOD COUNT 2.78 x10^6/uL (4.38-5.82); RED CELL DISTRIBUTION WIDTH 17.7 % (9.4-14.8)
[2017-03-17 04:51] LABS: CHLORIDE 117 mmol/L (98-107)
[2017-03-17 04:59] LABS: ANION GAP 8 mmol/L (5-15); CALCIUM 8.5 mg/dL (8.5-10.1); CREATININE 1.42 mg/dL (0.7-1.3)
[2017-03-17] MEDS: DIGOXIN 0.125 MG TABLET PO SCH (09:04)
[2017-03-17] MEDS: INSULIN DETEMIR 100 UNITS/ML, PEN SQ-INSULIN SCH ×2 (09:04→22:30)
[2017-03-17] MEDS: AMIODARONE 200 MG TABLET PO SCH ×2 (09:04→21:16)
[2017-03-17] MEDS: CHOLESTYRAMINE LIGHT 4GM PACKET PO SCH ×2 (09:05→22:29)
[2017-03-17] MEDS: HEPARIN 5,000 UNITS/ML, 1ML SQ SCH ×2 (09:05→18:37)
[2017-03-18] MEDS: ALBUTEROL/IPRATROPIUM 2.5MG/0.5MG, 3 ML NPPB SCH ×6 (01:56→22:14)
[2017-03-18] MEDS: HEPARIN 5,000 UNITS/ML, 1ML SQ SCH ×3 (02:47→17:54)
[2017-03-18 05:12] LABS: ANION GAP 8 mmol/L (5-15); CHLORIDE 118 mmol/L (98-107)
[2017-03-18 05:13] LABS: CREATININE 1.48 mg/dL (0.7-1.3)
[2017-03-18 05:15] LABS: MD YES
[2017-03-18 05:16] LABS: MEAN CORPUSCULAR HEMOGLOBIN 30.9 pg (27.5-34.5); MEAN CORPUSCULAR HGB CONC 32.3 g/dL (33.2-36.2); MEAN CORPUSCULAR VOLUME 95.7 fL (81-97); MEAN PLATELET VOLUME 11.8 fL (7.4-10.4); PLATELET COUNT 149 x10^3/uL (130-400); RED BLOOD COUNT 2.59 x10^6/uL (4.38-5.82); RED CELL DISTRIBUTION WIDTH 17.5 % (9.4-14.8)
[2017-03-18 05:18] LABS: ANISOCYTOSIS 1+; BANDS%(MANUAL) 4 % (0-7); LYMPHS% (MANUAL) 5 % (22-44); METAMYELOCYTES% (MANUAL) 2 % (0-1); MONOS% (MANUAL) 5 % (2-9); NRBC % (MANUAL) 2 % (0-1); POLYCHROMASIA 1+; SEGS% (MANUAL) 84 % (42-75)
[2017-03-18 05:19] LABS: <PLATELET ESTIMATE> ADEQUATE; LARGE PLATELETS 1+; OVALOCYTES 1+
[2017-03-18] MEDS: INSULIN ASPART 100 UNITS/ML, PEN SQ-INSULIN SCH ×3 (06:26→16:28)
[2017-03-18] MEDS: ASPIRIN 81 MG TABLET CHEW PO SCH (06:27)
[2017-03-18] MEDS: DIGOXIN 0.125 MG TABLET PO SCH (08:17)
[2017-03-18] MEDS: AMIODARONE 200 MG TABLET PO SCH ×2 (08:17→20:38)
[2017-03-18] MEDS: INSULIN DETEMIR 100 UNITS/ML, PEN SQ-INSULIN SCH (11:00)
[2017-03-18] MEDS ORDERED: DIGO125T PO (11:16)
[2017-03-18] MEDS ORDERED: HEPA50002 SQ (11:16)
[2017-03-18] MEDS ORDERED: ASPI-515 PO (11:16)
[2017-03-18] MEDS ORDERED: BISA10SU65 PR (11:16)
[2017-03-18] MEDS ORDERED: AMIO200T42 PO (11:16)
[2017-03-18] MEDS ORDERED: ALPR0.254 PO (11:16)
[2017-03-18] MEDS ORDERED: INSU100I28 SQ-INSULIN (11:16)
[2017-03-18] MEDS: LACTULOSE 20 GM/30 ML UDC NG PRN (16:26)
[2017-03-18] MEDS: LORazepam 2 MG/ML, 1ML IVPush PRN (22:34)
[2017-03-19] MEDS: INSULIN ASPART 100 UNITS/ML, PEN SQ-INSULIN SCH ×3 (00:08→10:42)
[2017-03-19] MEDS: INSULIN DETEMIR 100 UNITS/ML, PEN SQ-INSULIN SCH ×2 (00:08→10:42)
[2017-03-19] MEDS: ALBUTEROL/IPRATROPIUM 2.5MG/0.5MG, 3 ML NPPB SCH ×4 (01:59→14:24)
[2017-03-19] MEDS: HEPARIN 5,000 UNITS/ML, 1ML SQ SCH ×2 (05:19→13:00)
[2017-03-19 06:16] LABS: MEAN CORPUSCULAR HEMOGLOBIN 31.2 pg (27.5-34.5); MEAN CORPUSCULAR HGB CONC 32.9 g/dL (33.2-36.2); MEAN CORPUSCULAR VOLUME 94.8 fL (81-97); RED BLOOD COUNT 2.54 x10^6/uL (4.38-5.82); RED CELL DISTRIBUTION WIDTH 17.9 % (9.4-14.8)
[2017-03-19 06:20] LABS: ANION GAP 8 mmol/L (5-15); CALCIUM 8.2 mg/dL (8.5-10.1); CHLORIDE 118 mmol/L (98-107); CREATININE 1.57 mg/dL (0.7-1.3); TRIGLYCERIDES 90 mg/dL (50-200)
[2017-03-19 06:40] LABS: MEAN PLATELET VOLUME 11.5 fL (7.4-10.4); PLATELET COUNT 183 x10^3/uL (130-400)
[2017-03-19 06:41] LABS: BASOPHILS # (AUTO) 0.07 x10^3/uL (0-0.1); BASOPHILS % (AUTO) 1 % (0-1); EOSINOPHILS # (AUTO) 0.08 x10^3/uL (0-0.4); EOSINOPHILS % (AUTO) 1 % (1-7); LYMPHOCYTES # (AUTO) 0.81 x10^3/uL (1-3.4); LYMPHOCYTES % (AUTO) 7 % (22-44); MD SCAN; MONOCYTES # (AUTO) 0.44 x10^3/uL (0.2-0.8); MONOCYTES % (AUTO) 4 % (2-9); NEUTROPHILS # (AUTO) 10.43 x10^3/uL (1.8-6.8); NEUTROPHILS % (AUTO) 88 % (42-75)
[2017-03-19] MEDS: ASPIRIN 81 MG TABLET CHEW PO SCH (09:31)
[2017-03-19] MEDS: DIGOXIN 0.125 MG TABLET PO SCH (09:31)
[2017-03-19] MEDS: AMIODARONE 200 MG TABLET PO SCH (09:31)
[2017-03-19] MEDS: LACTULOSE 20 GM/30 ML UDC NG PRN (10:42)
[2017-03-19] MEDS: POLYETHYLENE GLYCOL 17 GM PACKET PO PRN (10:42)
== END 2017-03-19 16:15 | DRG 4 ==
LOC: ED 10:43 → EDIP 10:47 → CCU 22:12
PROVIDERS: ADMIT Internal Medicine; ATTEND Internal Medicine
PROC: 0BH17EZ Insertion of Endotracheal Airway into Trachea, Via Natural or Artificial Opening (ICD-10-PCS; 2017-02-20)
PROC: 5A1955Z Respiratory Ventilation, Greater than 96 Consecutive Hours (ICD-10-PCS; 2017-02-20)
PROC: 05HM33Z Insertion of Infusion Device into Right Internal Jugular Vein, Percutaneous Approach (ICD-10-PCS; 2017-02-20)
PROC: 0T9B70Z Drainage of Bladder with Drainage Device, Via Natural or Artificial Opening (ICD-10-PCS; 2017-02-20)
PROC: 30233N1 Transfusion of Nonautologous Red Blood Cells into Peripheral Vein, Percutaneous Approach (ICD-10-PCS; 2017-02-24)
PROC: B543ZZA Ultrasonography of Right Jugular Veins, Guidance (ICD-10-PCS; 2017-02-25)
PROC: 5A12012 Performance of Cardiac Output, Single, Manual (ICD-10-PCS; 2017-02-25)
PROC: 0B110F4 Bypass Trachea to Cutaneous with Tracheostomy Device, Open Approach (ICD-10-PCS; 2017-03-16)
PROC: 0DH64UZ Insertion of Feeding Device into Stomach, Percutaneous Endoscopic Approach (ICD-10-PCS; principal; 2017-03-16 11:30)
DX: A41.9 Sepsis, unspecified organism (principal); I46.9 Cardiac arrest, cause unspecified; J69.0 Pneumonitis due to inhalation of food and vomit; E43 Unspecified severe protein-calorie malnutrition; J96.21 Acute and chronic respiratory failure with hypoxia; R65.21 Severe sepsis with septic shock; G93.41 Metabolic encephalopathy; D64.9 Anemia, unspecified; B35.1 Tinea unguium; I50.33 Acute on chronic diastolic (congestive) heart failure; N17.9 Acute kidney failure, unspecified; J44.0 Chronic obstructive pulmonary disease with (acute) lower respiratory infection; I13.0 Hypertensive heart and chronic kidney disease with heart failure and stage 1 through stage 4 chronic kidney disease, or unspecified chronic kidney disease; J98.11 Atelectasis; E87.0 Hyperosmolality and hypernatremia; Z99.11 Dependence on respirator [ventilator] status; Z68.41 Body mass index [BMI] 40.0-44.9, adult; I48.2 Chronic atrial fibrillation; E66.01 Morbid (severe) obesity due to excess calories; G89.29 Other chronic pain; M25.559 Pain in unspecified hip; N18.9 Chronic kidney disease, unspecified; E11.22 Type 2 diabetes mellitus with diabetic chronic kidney disease; I35.0 Nonrheumatic aortic (valve) stenosis; K59.00 Constipation, unspecified; K57.90 Diverticulosis of intestine, part unspecified, without perforation or abscess without bleeding; Z51.5 Encounter for palliative care; Z82.5 Family history of asthma and other chronic lower respiratory diseases; Z87.891 Personal history of nicotine dependence; Z90.49 Acquired absence of other specified parts of digestive tract; Z88.5 Allergy status to narcotic agent; Z79.01 Long term (current) use of anticoagulants; Z85.048 Personal history of other malignant neoplasm of rectum, rectosigmoid junction, and anus; Z99.81 Dependence on supplemental oxygen; Z79.82 Long term (current) use of aspirin
CPT/HCPCS: 36415; 36556; 36600; 51702; 71010; 71045; 80048; 80053; 80061; 80162; 81001; 82040; 82272; 82803; 82805; 82962; 83605; 83735; 83880; 84100; 84132; 84145; 84443; 84478; 84484; 85014; 85018; 85025; 85610; 85730; 86022; 86850; 86900; 86923; 87040; 87070; 87081; 87086; 87205; 92950; 93005; 93306; 94002; 94003; 94150; 94640; 96365; 96375; B4087; J0295; J0690; J1265; J1644; J1650; J1815; J1940; J2250; J2543; J2704; J3010; J3370; J3480; J3490; J7620; P9047; C1751; J0282; J0330; J1160; J2060; J7030; J7040; J7050; J7060; P9016